=== PATIENT | male | born 1970 | race Caucasian/White ===

== ENCOUNTER 2017-05-13 15:05 | Emergency (ER) | payer OTHER ==
--- NOTE | 2017-05-13 16:36 | RAD REPORT ---
EXAM DESCRIPTION: RAD - Ankle Left 3 View - 05/13/2017 4:28 pm CLINICAL HISTORY: Trauma, left ankle and foot pain. COMPARISON: None. FINDINGS: Left ankle and left foot, multiple projections. Moderate soft tissue swelling is seen about the ankle. Two screws are present in the calcaneus with l arge calcaneal spurs seen. A screw is also present spanning the first tarsal-metatarsal joint. There is no evidence of hardware complication. Arthritic changes are present in the foot and ankle without an acute fracture seen.
--- NOTE | 2017-05-13 18:16 | ER ---
Nurse's Notes [facility] Name: Jim Hays Age: 46 yrs Sex: Male : 1970 Arrival Date: 05/13/2017 Time: 15:08 Bed 11 Private MD: Diagnosis: Sprain of unspecified ligament of left ankle Presentation: 05/13 15:46 Presenting complaint: Patient states: i was mowing my lawn today, around 10 and my L hj foot got into a hole, and now my L ankle and foot hurts;. Transition of care: patient was not received from another setting of care. Onset of symptoms was May 13, 2017. Care prior to arrival: None. 15:46 Method Of Arrival: Ambulatory hj 15:46 Acuity: IVON 4 hj Triage Assessment: 15:48 General: Appears in no apparent distress. uncomfortable, Behavior is calm, cooperative, hj appropriate for age. Pain: Complains of pain in left foot and left lateral ankle. Musculoskeletal: Reports. 15:49 Injury Description: Bruise. hj Historical: - Allergies: 15:48 NKA; hj - Home Meds: 15:48 folic acid 1 mg Oral tab 1 tab once daily [Active]; glipizide 10 mg Oral tab 1 tab 2 hj times per day [Active]; hydroxyzine HCl 25 mg Oral tab 1 tab 3 times per day [Active]; ibuprofen 800 mg Oral tab 1 tab 3 times per day [Active]; lisinopril 20 mg Oral tab 1 tab once daily [Active]; metformin 500 mg Oral tr24 1 tab twice a day [Active]; multivitamin Oral cap daily [Active]; - PMHx: 15:48 Alcoholism; Diabetes - NIDDM; Hypertension; hj - PSHx: 15:48 lap band; heart monitor; hj - Immunization history:: Adult Immunizations up to date. - Social history:: Smoking status: Patient/guardian denies using tobacco, Patient/guardian denies using alcohol. - Family history:: not pertinent. - Hospitalizations: : No recent hospitalization is reported. Screenin:28 Abuse screen: Denies threats or abuse. Denies injuries from another. Nutritional hj screening: No deficits noted. Tuberculosis screening: No symptoms or risk factors identified. Fall Risk Fall in past 12 months (25 points). Assessment: 18:00 General: Appears in no apparent distress. Behavior is calm, cooperative. Pain: iw Complains of pain in left foot. Neuro: Level of Consciousness is awake, alert, obeys commands. Respiratory: Respiratory effort is even, unlabored, Respiratory pattern is regular. 18:49 Reassessment: Patient appears in no apparent distress at this time. Patient and/or iw family updated on plan of care and expected duration. Pain level reassessed. Patient is alert, oriented x 3, equal unlabored respirations, skin warm/dry/pink. Vital Signs: 15:49 BP 126 / 72; Pulse 89; Resp 18; Temp 97.9(O); Pulse Ox 96% on R/A; Weight 147.42 kg; hj Height 6 ft. 1 in. (185.42 cm); Pain 6/10; 15:49 Body Mass Index 42.88 (147.42 kg, 185.42 cm) ED Course: 15:08 Patient arrived in ED. rg4 15:47 Triage completed. 15:49 Arm band placed on left wrist. 15:49 Patient has correct armband on for positive identification. Bed in low position. Call light in reach. Side rails up X 1. 16:16 X-ray completed. Portable x-ray completed in exam room. Patient tolerated procedure ml well. 17:33 Kinsey Butler RN is Primary Nurse. iw 17:37 [facility] kav 17:37 Jesus Washington MD is Attending Physician. kav 18:15 Martinez Suarez MD is Referral Physician. kav 19:15 No provider procedures requiring assistance completed. Patient did not have IV access iw during this emergency room visit. Administered Medications: 18:28 Drug: Calcium 10 mg-325 mg 1 tabs Route: PO; iw 18:28 Drug: Ibuprofen 800 mg Route: PO; iw Outcome: 18:16 Discharge ordered by MD. kav 19:15 Discharged to home via wheelchair. iw 19:15 Condition: good 19:15 Discharge instructions given to patient, Instructed on discharge instructions, follow up and referral plans. medication usage, Demonstrated understanding of instructions, follow-up care, medications, Prescriptions given X 2. 19:17 Patient left the ED. iw Signatures: Frances Encarnacion FNP MANAGER MACHINEKinsey Ridley RN RN Deborah Kinney Henry, RN RN Frida Shepard rg4 Corrections: (The following items were deleted from the chart) 15:51 15:49 Pulse 89bpm; Resp 18bpm; Pulse Ox 96% RA; Temp 97.9F Oral; 147.42 kg; Height 6 hj ft. 1 in.; BMI: 42.8; Pain 6/10; hj
--- NOTE | 2017-05-13 18:17 | EDPHYS ---
Physician Documentation [facility] Name: Jim Hays Age: 46 yrs Sex: Male : 1970 Arrival Date: 05/13/2017 Time: 15:08 Bed 11 Private MD: ED Physician Jesus Washington HPI: 05/13 17:52 This 46 yrs old Male presents to ER via Ambulatory with complaints of Foot kav Injury. 17:53 The patient presents with an injury, pain, swelling. The complaints affect the anterior kav aspect of left ankle. Context: The problem was sustained at home, resulted from a mis-step, stepped in hole in lawn and twisted left ankle. Onset: The symptoms/episode began/occurred this morning. Modifying factors: The symptoms are alleviated by nothing. the symptoms are aggravated by movement, weight bearing. Associated signs and symptoms: Pertinent positives:. 18:09 Treatment prior to arrival includes: no previous treatment. Severity of symptoms: At [facility] their worst the symptoms were moderate, just prior to arrival. pmhx: left ankle surgery January 2015. Historical: - Allergies: 15:48 NKA; hj - Home Meds: 15:48 folic acid 1 mg Oral tab 1 tab once daily [Active]; glipizide 10 mg Oral tab 1 tab 2 hj times per day [Active]; hydroxyzine HCl 25 mg Oral tab 1 tab 3 times per day [Active]; ibuprofen 800 mg Oral tab 1 tab 3 times per day [Active]; lisinopril 20 mg Oral tab 1 tab once daily [Active]; metformin 500 mg Oral tr24 1 tab twice a day [Active]; multivitamin Oral cap daily [Active]; - PMHx: 15:48 Alcoholism; Diabetes - NIDDM; Hypertension; hj - PSHx: 15:48 lap band; heart monitor; hj - Immunization history:: Adult Immunizations up to date. - Social history:: Smoking status: Patient/guardian denies using tobacco, Patient/guardian denies using alcohol. - Family history:: not pertinent. - Hospitalizations: : No recent hospitalization is reported. ROS: 18:12 Constitutional: Negative for fever, chills, and weight loss, Eyes: Negative for injury, kav pain, redness, and discharge, ENT: Negative for injury, pain, and discharge, Neck: Negative for injury, pain, and swelling, Cardiovascular: Negative for chest pain, palpitations, and edema, Respiratory: Negative for shortness of breath, cough, wheezing, and pleuritic chest pain, Abdomen/GI: Negative for abdominal pain, nausea, vomiting, diarrhea, and constipation, Back: Negative for injury and pain, : Negative for injury, bleeding, discharge, and swelling, Skin: Negative for injury, rash, and discoloration, Neuro: Negative for headache, weakness, numbness, tingling, and seizure, Psych: Negative for depression, anxiety, suicide ideation, homicidal ideation, and hallucinations, Allergy/Immunology: Negative for hives, rash, and allergies, Endocrine: Negative for neck swelling, polydipsia, polyuria, polyphagia, and marked weight changes, Hematologic/Lymphatic: Negative for swollen nodes, abnormal bleeding, and unusual bruising. 18:12 MS/extremity: Positive for pain, swelling, tenderness. Exam: 18:12 Constitutional: This is a well developed, well nourished patient who is awake, alert, kav and in no acute distress. Head/Face: Normocephalic, atraumatic. Eyes: Pupils equal round and reactive to light, extra-ocular motions intact. Lids and lashes normal. Conjunctiva and sclera are non-icteric and not injected. Cornea within normal limits. Periorbital areas with no swelling, redness, or edema. ENT: Nares patent. No nasal discharge, no septal abnormalities noted. Tympanic membranes are normal and external auditory canals are clear. Oropharynx with no redness, swelling, or masses, exudates, or evidence of obstruction, uvula midline. Mucous membranes moist. Neck: Trachea midline, no thyromegaly or masses palpated, and no cervical lymphadenopathy. Supple, full range of motion without nuchal rigidity, or vertebral point tenderness. No Meningismus. Chest/axilla: Normal chest wall appearance and motion. Nontender with no deformity. No lesions are appreciated. Cardiovascular: Regular rate and rhythm with a normal S1 and S2. No gallops, murmurs, or rubs. Normal PMI, no JVD. No pulse deficits. Respiratory: Lungs have equal breath sounds bilaterally, clear to auscultation and percussion. No rales, rhonchi or wheezes noted. No increased work of breathing, no retractions or nasal flaring. Abdomen/GI: Soft, non-tender, with normal bowel sounds. No distension or tympany. No guarding or rebound. No evidence of tenderness throughout. Back: No spinal tenderness. No costovertebral tenderness. Full range of motion. Skin: Warm, dry with normal turgor. Normal color with no rashes, no lesions, and no evidence of cellulitis. Neuro: Awake and alert, GCS 15, oriented to person, place, time, and situation. Cranial nerves II-XII grossly intact. Motor strength 5/5 in all extremities. Sensory grossly intact. Cerebellar exam normal. Normal gait. Psych: Awake, alert, with orientation to person, place and time. Behavior, mood, and affect are within normal limits. 18:12 Musculoskeletal/extremity: Extremities: noted in the anterior aspect of left ankle: decreased ROM, pain, swelling, ROM: limited active range of motion, Circulation is intact in all extremities. Pulses: noted to be 2+ in the , Sensation intact. Joints: the left ankle displays limited range of motion, painful range of motion, swelling, tenderness, Weight bearing: can bear weight with assistance only, uses crutch, Tendon exam: specific tendon testing normal through active and passive range of motion Vital Signs: 15:49 BP 126 / 72; Pulse 89; Resp 18; Temp 97.9(O); Pulse Ox 96% on R/A; Weight 147.42 kg; hj Height 6 ft. 1 in. (185.42 cm); Pain 6/10; 15:49 Body Mass Index 42.88 (147.42 kg, 185.42 cm) MDM: 17:37 Patient medically screened. [facility] 18:12 Data reviewed: vital signs, nurses notes, radiologic studies. [facility] 05/13 15:51 Order name: XRAY Ankle LEFT 3 view 05/13 15:51 Order name: Foot Left 3 View XRAY 05/13 16:37 Order name: RAD; Complete Time: 17:52 EDOK 05/13 17:53 Interpretation: No acute disease. [facility] 05/13 18:05 Order name: Mike wrap-joint; Complete Time: 18:28 ka 05/13 18:05 Order name: Ice pack; Complete Time: 18:28 kav Administered Medications: 18:28 Drug: Rexford 10 mg-325 mg 1 tabs Route: PO; iw 18:28 Drug: Ibuprofen 800 mg Route: PO; iw Disposition: 05/14 14:53 Co-signature as Attending Physician, Jesus Washington MD I agree with the assessment and lizzette plan of care. Disposition: 05/13/17 18:16 Discharged to Home. Impression: Sprain of unspecified ligament of left ankle. - Condition is Stable. - Prescriptions for Ibuprofen 800 mg Oral Tablet - take 1 tablet by ORAL route every 8 hours As needed take with food; 30 tablet. Tramadol 50 mg Oral Tablet - take 1 tablet by ORAL route every 8 hours as needed; 20 tablet. - Medication Reconciliation Form, Thank You Letter, Antibiotic Education, Prescription Opioid Use, Work release form form. - Follow up: Martinez Suarez MD; When: 1 week; Reason: Recheck today's complaints, Continuance of care, Re-evaluation by your physician. - Problem is new. - Symptoms have improved. Signatures: Dispatcher [employer] EDJesus Farah MD MD cha Vern, Katherine, NAPHTHALENE OPERATOR NAPHTHALENE OPERATOR Kinsey Tan RN RN iw Joaquin, Henry, RN RN Corrections: (The following items were deleted from the chart) 05/13 18:28 18:05 Crutches ordered. jordy patel
[2017-05-13] MEDS ORDERED: IBUPROFEN 400 MG TAB ONE (18:41)
[2017-05-13] MEDS ORDERED: HYDROCODONE/APAP 10/325 TAB ONE (18:42)
[2017-05-13 19:22] VITALS: BP 126/72; TEMP 97.9; O2SAT 96
== END 2017-05-13 19:17 | disposition home or self-care (01) ==
LOC: ER 15:05
DX: W17.89XA Other fall from one level to another, initial encounter; Y93.01 Activity, walking, marching and hiking; S93.402A Sprain of unspecified ligament of left ankle, initial encounter; Y99.9 Unspecified external cause status; Y92.017 Garden or yard in single-family (private) house as the place of occurrence of the external cause; E11.9 Type 2 diabetes mellitus without complications; I10 Essential (primary) hypertension
CPT/HCPCS: 99283

== ENCOUNTER 2017-07-05 14:33 | Observation (INO) | payer OTHER ==
[2017-07-05] MEDS ORDERED: MORPHINE 4 MG/ML SYR ONE (14:55)
[2017-07-05] MEDS ORDERED: NA CHLORIDE 0.9% 500 ML ONE (14:56)
[2017-07-05 15:15] LABS: Absolute Lymphocytes (CBC) 3.4 K/uL (0.7-4.9); Absolute Monocytes 0.9 K/uL (0.1-1.3); Absolute Neutrophil 6.6 K/uL (1.8-8.0); Basophils % 1.2 % (0-1.3); Eosinophils % 0.2 % (0-4.4); Lymphocytes % 30.7 % (15.3-44.8); MCH 29.8 pg (27.0-35.0); MCV 89.2 fL (80-100); MPV 7.6 fL (7.6-11.3); Monocytes % 8.5 % (3.3-12.3); RBC Red Blood Cell Count 5.27 M/uL (4.33-5.43)
[2017-07-05 15:55] LABS: Bicarbonate 22 mEq/L (21-31); CKMB Creatine Kinase MB 2.6 ng/ml (0.3-4.0); Glucose Level 185 mg/dL (65-120); Potassium 3.6 mEq/L (3.6-5.0); Sodium Level 135 mEq/L (135-145)
[2017-07-05 16:01] LABS: ALT/SGPT 75 IU/L (10-60); AST/SGOT 43 IU/L (10-42); Albumin 4.2 g/dL (3.2-5.5); Alkaline Phosphatase 79 IU/L (42-121); BUN Blood Urea Nitrogen 12 mg/dL (6-20); Bilirubin Direct 0.1 mg/dL (0-0.2); Bilirubin Total 0.6 mg/dL (0.3-1.2); Creatine Phosphokinase 243 IU/L (22-269); Magnesium 1.7 mg/dL (1.8-2.5); Protein, Total 7.9 g/dL (6.0-8.3)
[2017-07-05] MEDS ORDERED: LIDOCAINE VISCOUS 2% SOLN 15 ML UDC ONE (16:03)
[2017-07-05] MEDS ORDERED: MEPERIDINE HCL 25 MG/0.5 ML ONE ×2 (16:03→17:51)
[2017-07-05] MEDS ORDERED: MAGNE/ALUM HYDROXD 30 ML UCUP ONE (16:03)
--- NOTE | 2017-07-05 16:16 | EKG ---
Test Date: 2017-07-05 Test Time: 14:50:43 Cyber Security Engineer: DOUGLAS MEASUREMENT RESULTS: Intervals: Rate: 116 CT: 160 QRSD: 84 QT: 324 QTc: 450 [place]: P: 31 CT: 160 QRS: 6 T: 11 INTERPRETIVE STATEMENTS: Sinus tachycardia Cannot rule out Inferior infarct, age undetermined Abnormal ECG Compared to ECG 01/02/2017 20:23:03 Myocardial infarct finding now present Electronically Signed On 07-05-17 16:15:48 CDT by Logan Taylor
[2017-07-05 17:27] LABS: Barbiturates NEGATIVE; Benzodiazepines NEGATIVE; Cocaine NEGATIVE; METHAMPHETAM NEGATIVE; Opiates POSITIVE; Phencyclidine NEGATIVE; THC Cannibis NEGATIVE
--- NOTE | 2017-07-05 18:25 | RAD REPORT ---
EXAM DESCRIPTION: RAD - Chest Single View - 07/05/2017 3:37 pm CLINICAL HISTORY: Shortness of breath COMPARISON: December 2016 TECHNIQUE: AP portable chest image was obtained 1533 hours . FINDINGS: Lungs are clear. Heart and vasculature are normal. No measurable pleural effusion and no p neumothorax. No gross bony abnormality seen. No acute aortic findings. Loop recorder overlies the lef t side of the chest. IMPRESSION: No acute cardiopulmonary process. No significant change from comparison.
--- NOTE | 2017-07-05 18:33 | RAD REPORT ---
EXAM DESCRIPTION: CT - Angio Aorta For Dissection - 07/05/2017 6:24 pm CLINICAL HISTORY: Chest pain, shortness of breath COMPARISON: Chest films same date TECHNIQUE: Dynamically enhanced 3 mm thick images of the chest, abdomen, and upper pelvis were obtai carol[place] during administration of approximately 150mL Isovue 370 IV contrast. Sagittal and coronal reconst ruction images were generated and reviewed. Exam utilizes a protocol to evaluate entire course of the aorta. All CT scans are performed using dose optimization technique as appropriate and may include automated exposure control or mA/KV adjustment according to patient size. FINDINGS: Aorta is normal in diameter with no dissection or other acute aortic findings. Reconstruct ion images show no significant findings. Minimal atherosclerotic calcifications are present. Pulmonary arteries are clear. The far peripheral branches are limited in assessment. No cardiomegaly, pericardial thickening or pericardial effusion. No mass or infiltrate in the lung parenchyma. No pleural thickening, pleural effusion or pneumothorax . No abnormal mediastinal or hilar mass or lymphadenopathy seen. No chest wall mass or abnormal axillar y lymphadenopathy. Celiac, SMA and renal arteries show no suspicious findings. Liver shows a pronounced fatty infiltrati on pattern with no focal liver lesions. Liver and spleen are normal in size. No pancreatic or peripan creatic abnormality. Gallbladder and biliary tree are within normal limits. Gallstones can be occult on CT imaging. Lap band is in place. No acute GI process identified. The appendix is normal. No mass or abnormal lymphadenopathy. No free air, free fluid or inflammatory stranding. No urinary bladder a bnormality. Fat filled right inguinal hernia present. IMPRESSION: No aneurysm, dissection or acute aortic finding. No acute CT chest finding seen. Diffuse fatty infiltration of the liver with no acute liver finding. No active process identified bel ow the diaphragm.
[2017-07-05] MEDS ORDERED: LORazepam 2 MG/ML VIAL ONE (18:47)
--- NOTE | 2017-07-05 18:50 | ER ---
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 Pain does not radiate. Transition of care: patient was not received from another setting of care. Onset of symptoms was July 05, 2017. Care prior to arrival: None. 14:37 Method Of Arrival: Ambulatory hb 14:37 Acuity: IVON 2 hb 14:40 Initial Sepsis Screen: Does the patient meet any 2 criteria? RR > 20 per min. HR > 90 sv bpm. Yes Does the patient have a suspected source of infection? No. Patient's initial sepsis screen is negative. Historical: - Allergies: 20:03 No Known Allergies; mg2 - Home Meds: 15:22 folic acid 1 mg Oral tab 1 tab once daily [Active]; glipizide 10 mg Oral tab 1 tab 2 sv times per day [Active]; hydroxyzine HCl 25 mg Oral tab 1 tab 3 times per day [Active]; ibuprofen 800 mg Oral tab 1 tab 3 times per day [Active]; lisinopril 20 mg Oral tab 1 tab once daily [Active]; metformin 500 mg Oral tr24 1 tab twice a day [Active]; multivitamin Oral cap daily [Active]; - PMHx: 15:22 Alcoholism; Diabetes - NIDDM; Hypertension; sv - PSHx: 15:22 lap band; sv - Immunization history:: Adult Immunizations up to date. - Family history:: not pertinent. - Social history:: Smoking status: Patient uses tobacco products, smokes one pack cigarettes per day. Patient uses alcohol, weekly. patient/guardian reports chronic longstanding heavy alcohol consumption. - Hospitalizations: : No recent hospitalization is reported. Screenin:50 Abuse screen: Denies threats or abuse. Denies injuries from another. Nutritional sv screening: No deficits noted. Tuberculosis screening: No symptoms or risk factors identified. Fall Risk None identified. Assessment: 14:50 General: Appears distressed, uncomfortable, obese, well developed, Behavior is sv cooperative, anxious. Pain: Complains of pain in chest Pain does not radiate. Pain currently is 10 out of 10 on a pain scale. Quality of pain is described as sharp, stabbing, Pain began suddenly, 1 hour ago. Is continuous, Noted to be crying, grimacing, moaning. Neuro: Level of Consciousness is awake, alert, obeys commands, Oriented to person, place, time, situation, Moves all extremities. Full function Gait is steady. Cardiovascular: Reports shortness of breath, Patient's skin is warm and dry. Pulses are 3+ in right radial artery and left radial artery Rhythm is sinus tachycardia. Respiratory: Respiratory effort is even, labored, Respiratory pattern is symmetrical, tachypnea. GI: Abdomen is obese. Derm: Skin is clammy, Skin is red, Skin temperature is warm. Musculoskeletal: No signs and/or symptoms reported regarding the musculoskeletal system. 15:55 Reassessment: pt c/o increase CP, described as pressure midsternal, nonradiating, a sg 10/10, pt placed back on NC 02, 02 100 percent, HR 110, BP 155/96, notifed, awaiting new orders at this time. 16:06 Reassessment: No changes from previously documented assessment. Patient and/or family sv updated on plan of care and expected duration. Pain level reassessed. Patient is alert, oriented x 3, equal unlabored respirations, skin warm/dry/pink. c/o chest pain that has not subsided. Informed Dr Oleary, medication ordered. 17:50 Reassessment: No changes from previously documented assessment. Patient and/or family sv updated on plan of care and expected duration. Pain level reassessed. Patient is alert, oriented x 3, equal unlabored respirations, skin warm/dry/pink. c/o chest pain that has not subsided. Informed Dr Oleary, medication ordered. Pt had taken off his oxygen, pt placed back on oxygen at 2L per NC. 18:00 Reassessment: Patient and/or family updated on plan of care and expected duration. Pain sv level reassessed. Patient is alert, oriented x 3, equal unlabored respirations, skin warm/dry/pink. c/o chest pain that has not subsided as stated by the pt. Informed Dr Oleary, medication order received. 19:28 Reassessment: Patient appears in no apparent distress at this time. Patient and/or mg2 family updated on plan of care and expected duration. Pain level reassessed. Patient is alert, oriented x 3, equal unlabored respirations, skin warm/dry/pink. received from morning shift. patient sitting comfortably on bed. Vital Signs: 14:38 BP 174 / 100; Pulse 120; Resp 22; Temp 97.9; Pulse Ox 97% on R/A; Pain 10/10; hb 15:23 BP 155 / 96; Pulse 110 MON; Resp 16; Pulse Ox 96% on 2 lpm NC; sv 16:00 BP 151 / 99; Pulse 118 MON; Resp 32; Pulse Ox 98% on 2 lpm NC; sv 17:00 BP 165 / 93; Pulse 112 MON; Resp 19; Pulse Ox 97% on 2 lpm NC; sv 17:59 BP 137 / 75; Pulse 117; Resp 21; Pulse Ox 98% on 2 lpm NC; sv 19:29 BP 166 / 78; Pulse 110; Resp 20; Pulse Ox 98% on 2 lpm NC; mg2 15:23 Sinus Rhythm sv 16:00 Sinus tachycardia sv 17:00 Sinus tachycardia sv 17:59 Sinus tachycardia sv ED Course: 14:34 Patient arrived in ED. al2 14:38 Triage completed. hb 14:39 Arm band placed on right wrist. hb 14:41 Pavan Oleary MD is Attending Physician. rn 14:45 Sarah Castanon, MICHELE is Primary Nurse. sv 14:49 Inserted saline lock: 18 gauge in right antecubital area, using aseptic technique. hb Blood collected. 14:50 Patient has correct armband on for positive identification. Placed in gown. Bed in low sv position. Call light in reach. Adult w/ patient. bus monitor on. Pulse ox on. NIBP on. Door closed. Head of bed elevated. 15:23 Oxygen administration via nasal cannula \T\ 2L/min Response to oxygen therapy: symptoms sv remain unchanged. 15:33 X-ray completed. Portable x-ray completed in exam room. Patient tolerated procedure bb2 well. 15:34 XRAY Chest (1 view) In Process Unspecified. EDMS 17:59 EKG done, by planetarium technician. reviewed by Pavan Oleary MD Repeat EKG. at1 18:24 CT Aorta for Dissection In Process Unspecified. EDMS 18:49 Michael Dozier MD is Hospitalizing Provider. rn 18:52 IV is patent, is intact. sv 19:43 Primary Nurse role handed off by Sarah Castanon RN sv 20:01 Reynold Tsai, MICHELE is Primary Nurse. mg2 20:26 No provider procedures requiring assistance completed. Patient admitted, IV remains in mg2 place. intact. Administered Medications: 15:00 Drug: NS 0.9% 500 ml Route: IV; Rate: bolus; Site: right antecubital; sv 15:30 Follow up: Response: No adverse reaction; IV Status: Completed infusion; IV Intake: sv 500ml 15:00 Drug: morphine 4 mg Route: IVP; Site: right antecubital; sv 15:15 Follow up: Response: No adverse reaction sv 16:08 Drug: GI Cocktail without - (Maalox Suspension 30 ml, Lidocaine Liquid 2 % 15 sv ml) Route: PO; 17:04 Follow up: Response: No adverse reaction sv 16:08 Drug: Demerol 25 mg Route: IVP; Site: right antecubital; sv 17:04 Follow up: Response: No adverse reaction sv 17:55 Drug: Demerol 25 mg Route: IVP; Site: right antecubital; aa5 18:15 Follow up: Response: No adverse reaction; No change in condition sv 18:52 Drug: Ativan 1 mg Route: IVP; Site: right antecubital; sv 19:00 Follow up: Response: No adverse reaction sv 18:56 Drug: Aspirin Chewable Tablet 324 mg Route: PO; sv 19:00 Follow up: Response: No adverse reaction sv Intake: 15:30 IV: 500ml; Total: 500ml. sv Outcome: 18:49 Decision to Hospitalize by Provider. rn 20:25 Admitted to Tele accompanied by tech, via wheelchair, room 415, with oxygen, with mg2 chart, Report called to edwin 20:25 Condition: stable 20:25 Instructed on the need for admit. 20:38 Patient left the ED. 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 hb 14:39 14:37 Acuity: IVON 3 hb hb 17:56 07:55 Demerol 25 mg IVP in right antecubital aa5 aa5 18:09 17:59 Pulse 117bpm; Resp 21bpm; Pulse Ox 98% 2 lpm Nasal Cannula; sv sv 19:28 16:09 Reassessment: No changes from previously documented assessment. Patient and/or sv family updated on plan of care and expected duration. Pain level reassessed. Patient is alert, oriented x 3, equal unlabored respirations, skin warm/dry/pink. sv 19:28 17:50 Reassessment: No changes from previously documented assessment. Patient and/or sv family updated on plan of care and expected duration. Pain level reassessed. Patient is alert, oriented x 3, equal unlabored respirations, skin warm/dry/pink. c/o chest pain that has not subsided. Informed Dr Oleary, medication ordered. sv 20:03 15:22 Allergies: NKA; sv mg2
--- NOTE | 2017-07-05 18:50 | EDPHYS ---
Physician Documentation [facility] Name: Jim Hays Age: 46 yrs Sex: Male : 1970 Arrival Date: 07/05/2017 Time: 14:34 Bed 7 Private MD: ED Physician Pavan Oleary HPI: 07/05 15:31 This 46 yrs old Male presents to ER via Ambulatory with complaints of Chest rn Pain, Breathing Difficulty. 15:31 The patient or guardian reports chest pain that is located primarily in the substernal rn area. Onset: just prior to arrival. The pain does not radiate. The chest pain is described as a heaviness, a pressure. Severity of pain: At its worst the pain was moderate in the emergency department the pain is unchanged. The patient has experienced similar episodes in the past. Reports eating lunch, sudden onset of chest pain, substernal, non-radiating, + mild sob, hx of ETOh and drug related chest pain, reports drank heavily last night and some today, denies drug use. . Historical: - Allergies: 20:03 No Known Allergies; mg2 - Home Meds: 15:22 folic acid 1 mg Oral tab 1 tab once daily [Active]; glipizide 10 mg Oral tab 1 tab 2 sv times per day [Active]; hydroxyzine HCl 25 mg Oral tab 1 tab 3 times per day [Active]; ibuprofen 800 mg Oral tab 1 tab 3 times per day [Active]; lisinopril 20 mg Oral tab 1 tab once daily [Active]; metformin 500 mg Oral tr24 1 tab twice a day [Active]; multivitamin Oral cap daily [Active]; - PMHx: 15:22 Alcoholism; Diabetes - NIDDM; Hypertension; sv - PSHx: 15:22 lap band; sv - Immunization history:: Adult Immunizations up to date. - Family history:: not pertinent. - Social history:: Smoking status: Patient uses tobacco products, smokes one pack cigarettes per day. Patient uses alcohol, weekly. patient/guardian reports chronic longstanding heavy alcohol consumption. - Hospitalizations: : No recent hospitalization is reported. ROS: 15:31 Constitutional: Negative for fever, chills, and weight loss, Eyes: Negative for injury, rn pain, redness, and discharge, Neck: Negative for injury, pain, and swelling, Cardiovascular: Negative for edema Respiratory: Negative for wheezing Abdomen/GI: Negative for abdominal pain, nausea, vomiting, diarrhea, and constipation, Back: Negative for injury and pain, MS/Extremity: Negative for injury and deformity, Skin: Negative for injury, rash, and discoloration, Neuro: Negative for headache, weakness, numbness, tingling, and seizure. Exam: 15:31 Constitutional: Overweight male, appears anxious Head/Face: Normocephalic, rn atraumatic. Eyes: Pupils equal round and reactive to light, extra-ocular motions intact. Lids and lashes normal. Conjunctiva and sclera are non-icteric and not injected. Cornea within normal limits. Periorbital areas with no swelling, redness, or edema. ENT: dry MM Neck: Trachea midline, no thyromegaly or masses palpated, and no cervical lymphadenopathy. Supple, full range of motion without nuchal rigidity, or vertebral point tenderness. No Meningismus. Cardiovascular: tachycardic, regular, no murmur Respiratory: Lungs have equal breath sounds bilaterally, clear to auscultation and percussion. No rales, rhonchi or wheezes noted. No increased work of breathing, no retractions or nasal flaring. Abdomen/GI: Soft, non-tender, with normal bowel sounds. No distension or tympany. No guarding or rebound. No evidence of tenderness throughout. MS/ Extremity: Pulses equal, no cyanosis. Neurovascular intact. Full, normal range of motion. Equal circumference. Neuro: Awake and alert, GCS 15, oriented to person, place, time, and situation. Cranial nerves II-XII grossly intact. Motor strength 5/5 in all extremities. Sensory grossly intact. Vital Signs: 14:38 BP 174 / 100; Pulse 120; Resp 22; Temp 97.9; Pulse Ox 97% on R/A; Pain 10/10; hb 15:23 BP 155 / 96; Pulse 110 MON; Resp 16; Pulse Ox 96% on 2 lpm NC; sv 16:00 BP 151 / 99; Pulse 118 MON; Resp 32; Pulse Ox 98% on 2 lpm NC; sv 17:00 BP 165 / 93; Pulse 112 MON; Resp 19; Pulse Ox 97% on 2 lpm NC; sv 17:59 BP 137 / 75; Pulse 117; Resp 21; Pulse Ox 98% on 2 lpm NC; sv 19:29 BP 166 / 78; Pulse 110; Resp 20; Pulse Ox 98% on 2 lpm NC; mg2 15:23 Sinus Rhythm sv 16:00 Sinus tachycardia sv 17:00 Sinus tachycardia sv 17:59 Sinus tachycardia sv MDM: 14:41 Patient medically screened. rn 18:46 Differential diagnosis: acute myocardial infarction, acute pericarditis, anxiety, rn coronary artery disease chest wall pain, costochondritis, gastritis, pericarditis, pleurisy, pneumonia, pneumothorax, pulmonary embolus, thoracic aortic disection. The patient was given aspirin in the Emergency Department. Data reviewed: vital signs, nurses notes, lab test result(s), EKG, radiologic studies, CT scan, plain films, and as a result, I will admit patient. Counseling: I had a detailed discussion with the patient and/or guardian regarding: the historical points, exam findings, and any diagnostic results supporting the discharge/admit diagnosis, lab results, radiology results, the need for further work-up and treatment in the hospital. Admission orders: after a detailed discussion of the patient's condition and case, the admit orders are written by me. ED course: Pt with unclear etiology of chest pain, trop neg, no ischemia on ECG, ct aorta neg, still having pain despite pain medication, GI cocktail. Pt reports feeling like "is going to ".. 07/05 14:47 Order name: Basic Metabolic Panel; Complete Time: 16:47 07/05 14:47 Order name: BNP; Complete Time: 16:47 07/05 14:47 Order name: CBC with Diff; Complete Time: 16:47 07/05 14:47 Order name: Ckmb; Complete Time: 16:47 07/05 14:47 Order name: CPK; Complete Time: 16:47 07/05 14:47 Order name: LFT's; Complete Time: 16:47 07/05 14:47 Order name: Magnesium; Complete Time: 16:47 07/05 14:47 Order name: Troponin (emerg Dept Use Only); Complete Time: 16:47 07/05 14:47 Order name: XRAY Chest (1 view); Complete Time: 18:37 07/05 14:47 Order name: Urine Drug Screen; Complete Time: 18:37 07/05 16:48 Order name: CT Aorta for Dissection; Complete Time: 18:37 rn 07/05 18:50 Order name: Urine Dipstick--Ancillary (enter results); Complete Time: 19:40 bd 07/05 14:47 Order name: Urine Dipstick-Ancillary (obtain specimen); Complete Time: 17:05 rn 07/05 14:47 Order name: EKG; Complete Time: 14:47 rn 07/05 14:47 Order name: Cardiac monitoring; Complete Time: 15:46 rn 07/05 14:47 Order name: EKG - Nurse/Tech; Complete Time: 15:46 rn 07/05 14:47 Order name: IV Saline Lock; Complete Time: 15:46 rn 07/05 14:47 Order name: Labs collected and sent; Complete Time: 15:46 rn 07/05 14:47 Order name: O2 Per Protocol; Complete Time: 15:46 rn 07/05 14:47 Order name: O2 Sat Monitoring; Complete Time: 15:46 rn Administered Medications: 15:00 Drug: NS 0.9% 500 ml Route: IV; Rate: bolus; Site: right antecubital; sv 15:30 Follow up: Response: No adverse reaction; IV Status: Completed infusion; IV Intake: sv 500ml 15:00 Drug: morphine 4 mg Route: IVP; Site: right antecubital; sv 15:15 Follow up: Response: No adverse reaction sv 16:08 Drug: GI Cocktail without - (Maalox Suspension 30 ml, Lidocaine Liquid 2 % 15 sv ml) Route: PO; 17:04 Follow up: Response: No adverse reaction sv 16:08 Drug: Demerol 25 mg Route: IVP; Site: right antecubital; sv 17:04 Follow up: Response: No adverse reaction sv 17:55 Drug: Demerol 25 mg Route: IVP; Site: right antecubital; aa5 18:15 Follow up: Response: No adverse reaction; No change in condition sv 18:52 Drug: Ativan 1 mg Route: IVP; Site: right antecubital; sv 19:00 Follow up: Response: No adverse reaction sv 18:56 Drug: Aspirin Chewable Tablet 324 mg Route: PO; sv 19:00 Follow up: Response: No adverse reaction sv Disposition: 07/05/17 18:49 Hospitalization ordered by Michael Dozier for Observation. Preliminary diagnosis is Chest pain, unspecified. - Bed requested for Telemetry/MedSurg (observation). - Status is Observation. mg2 - Condition is Stable. - Problem is new. - Symptoms have improved. UTI on Admission? No Signatures: Dispatcher [employer] EDSarah Olsen, RN RN sv Taty Jimenez, RN RN mw Pavan Oleary MD MD rn Calderon, Audri, RN RN aa5 Reynold Tsai, RN RN mg2 Corrections: (The following items were deleted from the chart) 15:38 15:31 Constitutional: Negative for fever, chills, and weight loss, Eyes: Negative for rn injury, pain, redness, and discharge, Neck: Negative for injury, pain, and swelling, Cardiovascular: Negative for edema Respiratory: Negative for wheezing Abdomen/GI: Negative for abdominal pain, nausea, vomiting, diarrhea, and constipation, Back: Negative for injury and pain, MS/Extremity: Negative for injury and deformity, Skin: Negative for injury, rash, and discoloration, Neuro: Negative for headache, weakness, numbness, tingling, and seizure, rn 15:39 15:31 Constitutional: This is a well developed, well nourished patient who is awake, rn alert, and in no acute distress. rn 19:29 18:49 Hospitalization Ordered by Michael Dozier MD for Observation. Preliminary mw diagnosis is Chest pain, unspecified. Bed requested for Telemetry/MedSurg (observation). Status is Observation. Condition is Stable. Problem is new. Symptoms have improved. UTI on Admission? No. rn 20:03 15:22 Allergies: NKA; sv mg2 20:38 19:29 07/05/2017 18:49 Hospitalization Ordered by Michael Dozier MD for Observation. mg2 Preliminary diagnosis is Chest pain, unspecified. Bed requested for Telemetry/MedSurg (observation). Status is Observation. Condition is Stable. Problem is new. Symptoms have improved. UTI on Admission? No. mw
[2017-07-05] MEDS ORDERED: ASPIRIN 81 MG CHEWABLE TABLET ONE (18:54)
[2017-07-05 18:58] LABS: Urine Blood NEGATIVE (NEG); Urine Glucose TRACE (NEG); Urine Protein 2+ (NEG); Urine Specific Gravity >1.030 (1.005-1.030); Urine pH 5.5 (5.0-7.0)
--- NOTE | 2017-07-05 20:15 | P.HP ---
Certification for Inpatient Patient admitted to: Observation With expected LOS: <2 Midnights Practitioner: I am a practitioner with admitting privileges, knowledge of patient current condition, hospital course, and medical plan of care. Services: Services provided to patient in accordance with Admission requirements found in Title 42 Section 412.3 of the Code of Federal Regulations Patient History Date of Service: 07/05/17 Reason for admission: chest pain History of Present Illness: Mr Hays is a 46 years old male with history of morbid obesity, HTN, DM II, who came to ED complaining of chest pain. The pain started at noon, sudden while he was having lunch. It was located on substernal area, no radiated, 10/ 10 of intensity, described as pressure like, associated with SOB. He denied nausea or vomiting, diaphoresis, but he states that got hot in his face while the pain. He also noticed his heart was racing. He said that last time drink alcohol was yesterday, but his breath smell alcohol. Trop I negative, EKG sinus tachycardia, cannot rule out Inferior infarct, age undetermined. CT dissection negative for PE or dissection. Allergies No Known Todd Allergy (Uncoded 07/26/16 18:27) Unknown No Known Allergies Allergy (Uncoded 01/02/17 21:35) Unknown antihistamines Adverse Reaction (Uncoded 03/21/13 22:45) palpatations decongestants Adverse Reaction (Uncoded 03/21/13 22:45) palpatations Home Medications: Aspirin Chewable [Aspirin Chewable*] 81 mg PO DAILY 03/21/13 Carisoprodol [Soma*] 350 mg PO TIDP PRN 03/21/13 Diazepam [Valium*] 5 mg PO QIDP PRN 03/21/13 Glipizide [Glucotrol*] 10 mg PO BIDWM 03/21/13 Lisinopril [Prinivil*] 10 mg PO DAILY 03/21/13 - Past Medical/Surgical History Diabetic: Yes -: htn -: obese -: lap band - Family History Family History: Reviewed- Non-Contributory - Social History Alcohol use: Yes CD- Drugs: No Caffeine use: Yes Place of Residence: Home Review of Systems 10-point ROS is otherwise unremarkable Physical Examination - Physical Exam General: Alert, In no apparent distress HEENT: Atraumatic, PERRLA, Mucous membr. moist/pink, EOMI, Sclerae nonicteric Neck: Supple, 2+ carotid pulse no bruit, No LAD, Without JVD or thyroid abnormality Respiratory: Clear to auscultation bilaterally, Normal air movement Cardiovascular: Regular rate/rhythm, Normal S1 S2, Other (tachycardic) Gastrointestinal: Normal bowel sounds, No tenderness Musculoskeletal: No tenderness Integumentary: No rashes Neurological: Normal speech, Normal strength at 5/5 x4 extr, Normal tone, Normal affect Lymphatics: No axilla or inguinal lymphadenopathy - Studies Laboratory Data (last 24 hrs) 07/05/17 15:00: WBC 11.1 H, Hgb 15.7, Hct 47.0, Plt Count 278 07/05/17 15:00: B-Natriuretic Peptide < 10 07/05/17 15:00: Sodium 135, Potassium 3.6, BUN 12, Creatinine 0.86, Glucose 185 H, Magnesium 1.7 L, Total Bilirubin 0.6, AST 43 H, ALT 75 H, Alkaline Phosphatase 79 Assessment and Plan - Problems (Diagnosis) (1) Chest pain Current Visit: Yes Status: Acute Qualifiers: Chest pain type: precordial pain Qualified Code(s): R07.2 - Precordial pain (2) Obesity Current Visit: Yes Status: Acute Qualifiers: Obesity type: due to excess calories Obesity classification: unspecified obesity classification Serious obesity comorbidity presence: unspecified whether serious comorbidity present Qualified Code(s): E66.09 - Other obesity due to excess calories (3) Diabetes mellitus Current Visit: Yes Status: Acute Qualifiers: Diabetes mellitus type: type 2 Diabetes mellitus care home insulin use: without ocean transportation intermediary use Diabetes mellitus complication status: with unspecified complications Qualified Code(s): E11.8 - Type 2 diabetes mellitus with unspecified complications (4) HTN (hypertension) Current Visit: Yes Status: Acute Qualifiers: Hypertension type: essential hypertension Qualified Code(s): I10 - Essential (primary) hypertension - Plan The patient will be admitted to the hospital under observation due to chest pain. So far initial trop I is negative, EKG shows Inferior infarct, age undetermined, CT dissection negative as well. Will repeat serial trop I, EKG, order an ECHO, consult Air Technician. Toxicology screen positive only for opiates , which is not part of his home medications. Will order beta blockers, ASA, check lipid panel in am. - Advance Directives Does patient have a Living Will: No Does patient have a Durable POA for Healthcare: No - Code Status/Comfort Care Code Status Assessed: Yes Code Status: Full Code
[2017-07-05] MEDS ORDERED: ONDANSETRON 4 MG/2 ML VIAL IV PRN (20:41)
[2017-07-05] MEDS ORDERED: ACETAMINOPHEN 500 MG TAB PO PRN (20:41)
[2017-07-05] MEDS: INSULIN -REGULAR HUMAN 50 UNIT/0.5 ML ML SQ SCH (21:00)
[2017-07-05 22:05] VITALS: BMI 43.0
[2017-07-05] MEDS: TRAMADOL HCL 50 MG TAB PO PRN (22:06)
[2017-07-05] MEDS ORDERED: LORAZEPAM 1 MG TABLET PO ONE (23:51)
[2017-07-06 04:46] LABS: Absolute Lymphocytes (CBC) 2.1 K/uL (0.7-4.9); Absolute Monocytes 0.7 K/uL (0.1-1.3); Absolute Neutrophil 3.8 K/uL (1.8-8.0); Basophils % 0.7 % (0-1.3); Eosinophils % 0.2 % (0-4.4); Hematocrit 40.7 % (39.6-49.0); Lymphocytes % 31.9 % (15.3-44.8); MCH 30.7 pg (27.0-35.0); MCV 88.5 fL (80-100); MPV 7.5 fL (7.6-11.3); Monocytes % 10.3 % (3.3-12.3)
[2017-07-06 04:55] LABS: BUN Blood Urea Nitrogen 14 mg/dL (6-20); Bicarbonate 25 mEq/L (21-31); Glucose Level 148 mg/dL (65-120); HDL Cholesterol 63 mg/dL (27-67); LDL Cholesterol, Calculated 144 (<130); Potassium 3.8 mEq/L (3.6-5.0); Sodium Level 134 mEq/L (135-145)
[2017-07-06] MEDS ORDERED: METOPROLOL TAR 25 MG TAB PO SCH (06:00)
[2017-07-06] MEDS ORDERED: POTASSIUM 25 MEQ EFFERV TAB PO ONE (06:38)
--- NOTE | 2017-07-06 07:11 | RAD REPORT ---
EXAM DESCRIPTION: RAD - Chest Pa And Lat (2 Views) - 07/06/2017 6:39 am CLINICAL HISTORY: Chest pain COMPARISON: July 05 TECHNIQUE: PA and lateral views of the chest were obtained. FINDINGS: The lungs are clear. No new or progressive lung parenchymal or cardiomediastinal process. Heart size is normal and central vasculature is within normal limits. No pleural effusion or pneumo thorax seen. No acute bony finding noted. No aortic abnormality. IMPRESSION: No acute cardiopulmonary process. No new or progressive finding.
[2017-07-06] MEDS: INSULIN -REGULAR HUMAN 50 UNIT/0.5 ML ML SQ SCH ×3 (07:30→16:30)
[2017-07-06] MEDS ORDERED: REGADENOSON 0.4 MG/5 ML SYR IV ONE (07:34)
[2017-07-06] MEDS ORDERED: ENOXAPARIN 40 MG/0.4 ML SQ SCH (09:00)
[2017-07-06] MEDS ORDERED: ASPIRIN EC 81 MG TAB PO SCH (09:00)
[2017-07-06 09:05] LABS: A1c Component 0.99 mg/dL; Hemoglobin A1c 8.4 % (4-6.0)
[2017-07-06] MEDS: TRAMADOL HCL 50 MG TAB PO PRN (13:06)
--- NOTE | 2017-07-06 14:07 | RAD REPORT ---
EXAM DESCRIPTION: NM - Rest Stress Cardiac Imaging - 07/06/2017 1:54 pm CLINICAL HISTORY: Chest pain. COMPARISON: None. TECHNIQUE: The patient was administered approximately 10mCi of Tc 99m Sestamibi prior to resting SPE CT imaging of the heart. The patient was then administered approximately 30 mCi of Tc 99m Sestamibi f ollowing exercise or pharmacologic stress. Multiplanar SPECT images were reviewed. FINDINGS: No stress induced ischemic defect is seen to suggest stress induced ischemia. No fixed def ect is seen to suggest hibernating myocardium or scarred myocardium. The end diastolic volume is 128 ml, the end systolic volume is 54 ml, and the ejection fraction is 58 %. IMPRESSION: No stress induced ischemia.
[2017-07-06] MEDS ORDERED: GLUCAGON 1 MG/VIAL IM PRN (14:48)
[2017-07-06] MEDS ORDERED: D50W 25 GM/50 ML SYRINGE IV PRN (14:48)
--- NOTE | 2017-07-06 15:28 | EKG ---
Test Date: 2017-07-05 Test Time: 17:48:28 Kettle Girl: FLOR MEASUREMENT RESULTS: Intervals: Rate: 111 WY: 168 QRSD: 88 QT: 334 QTc: 454 Willow: P: 43 WY: 168 QRS: 3 T: 3 INTERPRETIVE STATEMENTS: Sinus tachycardia Cannot rule out Inferior infarct, age undetermined Abnormal ECG Compared to ECG 07/05/2017 14:50:43 No significant changes Electronically Signed On 07-06-17 15:27:01 CDT by Marc Rodriguez
--- NOTE | 2017-07-06 15:35 | TREADPHA ---
DX: CHEST PAIN Date of Study: 07/06/17 Ht: 6 1 Wt: 325 lb 12.8 oz Consulting Physician: JULY MEDICATIONS: TYLENOL, ASPIRIN, LOVENOX, NOVOLIN R, LOPRESSOR, ZOFRAN. HISTORY: 46 YEAR OLD WITH ATYPICAL CHEST PAIN. PHYSICIAL EXAMINATION: RESTING B.P.: 171/80 RESTING H.R.: 92 RESTING EKG: NORMAL PROTOCOL: LEXISCAN EXERCISE TIME: 3:30 B.P. AT PEAK STRESS: 167/88 IMPRESSION: LEXISCAN STRESS TEST PERFORMED. CARDIOLITE INJECTED PER PROTOCOL. NO VENTRICULAR TACHYCARDIA OR SUPRA VENTRICULAR TACHYCARDIA NOTED. SEE NUCLEAR MEDICINE REPORT.
--- NOTE | 2017-07-06 15:46 | ECHO ---
HEIGHT: 6 ft 1 in WEIGHT: 325 lb 12.8 oz DATE OF STUDY: 07/06/[address]: Michael Martinez MD 2-DIMENSIONAL: YES M.MODE: YES DOPPLER: YES COLOR FLOW: YES TDS: YES PORTABLE: NO DEFINITY: NO BUBBLE STUDY: NO DIAGNOSIS: CHEST PAIN CARDIAC HISTORY: CATHERIZATION: NO SURGERY: NO PROSTHETIC VALVE: NO PACEMAKER: NO MEASUREMENTS (cm) DIASTOLIC (NORMALS) SYSTOLIC (NORMALS) IVSd 1.1 (0.6-1.2) LA Diam 3.8 (1.9-4.0) LVEF 62% LVIDd 4.5 (3.5-5.7) LVIDs 3.0 (2.0-3.5) %FS 33% LVPWd 1.2 (0.6-1.2) Ao Diam 3.4 (2.0-3.7) 2 DIMENSIONAL ASSESSMENT: RIGHT ATRIUM: NORMAL LEFT ATRIUM: NORMAL RIGHT VENTRICLE: NORMAL LEFT VENTRICLE: NORMAL TRICUSPID VALVE: NORMAL MITRAL VALVE: NORMAL PULMONIC VALVE: NORMAL AORTIC VALVE: NORMAL PERICARDIAL EFFUSION: NONE AORTIC ROOT: NORMAL LEFT VENTRICULAR WALL MOTION: NORMAL. DOPPLER/COLOR FLOW: NORMAL. COMMENTS: NORMAL 2D ECHO. TECHNICALLY DIFFICULT STUDY. NO WALL MOTION ABNORMALITY. NO EFFUSION. TECHNOLOGIST: MISHA JOHNSON
[2017-07-06 16:53] VITALS: BP 155/75; TEMP 97.3
[2017-07-06 17:26] VITALS: O2SAT 95
--- NOTE | 2017-07-06 23:43 | CON ---
Date of Consultation: 07/06/2017 I saw the patient on 07/06/2017. Reason For Consultation: Chest pain and shortness of breath. History Of Present Illness: Mr. Hays is a 46-year-old male, has a history of obesity, is status po st lap band surgery, hypertension, alcoholism, and diabetes. He came in with shortness of breath, ch est pain, mostly palpitations, sharp chest pain, lasted about 4 hours. Some nausea, but no vomiting or diaphoresis. He denied PND, orthopnea, or pedal edema. Denied syncope. His workup by the time I saw him was unremarkable. He had an EKG, showed some sinus tachycardia with PACs. Chest x-ray was negative. CT of the abdomen showed fatty liver. CT angiogram was negative. He had elevated liver f unction tests mildly; AST 43, ALT 75. Glucose was 185. His white count was 11,000. Past Medical History: As stated above. Allergies: NONE. Review of Systems: Negative. Social History: Positive for alcohol. Medications: Include aspirin, metformin, Soma, Valium, Glucotrol, and Prinivil. Physical Examination: Vital Signs: His heart rate was 117. HEENT: Negative. Neck: Supple, with no bruit. Chest: Clear. Cardiac: Revealed a regular rhythm and rate. No murmurs, gallops, or rubs. Abdomen: Benign. Extremities: Revealed no clubbing, cyanosis, or edema. Diagnostic Data: As stated earlier. Impression And Plan: 1.Atypical chest pain, mostly pleuritic. 2.Possible anxiety and palpitation, secondary to premature atrial contractions. 3.Diabetes. 4.Hypertension. 5.Alcohol abuse with elevated liver function tests and fatty liver. 6.Obesity, status post laparoscopic band. Mr. Hays has been requesting that we give him some antidepressants when he goes home. I recommende d an echocardiogram and Lexiscan before we make any final decision. He may be a good candidate for b eta-blockers in addition to the Prinivil for blood pressure control and heart rate control and premat ure atrial contractions. NB/MODL Voice ID: [id number] Report ID: [id number]
== END 2017-07-06 16:45 | disposition left against medical advice (07) ==
LOC: ER 14:33 → ERHOLD 18:50 → 4TH 19:43
PROVIDERS: ADMIT Family Medicine; ATTEND Internal Medicine
DX: R07.9 Chest pain, unspecified (principal); E66.9 Obesity, unspecified; Z68.41 Body mass index [BMI] 40.0-44.9, adult; Z98.84 Bariatric surgery status; I10 Essential (primary) hypertension; E11.9 Type 2 diabetes mellitus without complications; F10.10 Alcohol abuse, uncomplicated
CPT/HCPCS: 36415; 71045; 71046; 71275; 74175; 78452; 80048; 80061; 80076; 80307; 80320; 81003; 82550; 82553; 82962; 83036; 83735; 83880; 84484; 85025; 93005; 93017; 93306; 96374; 96375; 99285; A9500; G0378; J1650; J2175; J2785; Q9967

== ENCOUNTER 2017-07-08 13:30 | Emergency (ER) | payer OTHER ==
--- NOTE | 2017-07-08 16:19 | EKG ---
Test Date: 2017-07-08 Test Time: 16:16:00 Field Hauler: FLOR MEASUREMENT RESULTS: Intervals: Rate: 77 MS: 158 QRSD: 84 QT: 374 QTc: 423 Heber: P: 37 MS: 158 QRS: 20 T: 21 INTERPRETIVE STATEMENTS: Normal sinus rhythm Normal ECG Compared to ECG 07/05/2017 17:48:28 Sinus tachycardia no longer present Myocardial infarct finding no longer present Electronically Signed On 07-08-17 16:18:55 CDT by Marc Rodriguez
[2017-07-08] MEDS ORDERED: ALPRAZOLAM 0.25 MG TABLET ONE (16:21)
[2017-07-08 16:34] LABS: Absolute Lymphocytes (CBC) 2.6 K/uL (0.7-4.9); Absolute Monocytes 0.5 K/uL (0.1-1.3); Absolute Neutrophil 4.8 K/uL (1.8-8.0); Eosinophils % 2.7 % (0-4.4); Hematocrit 45.5 % (39.6-49.0); Lymphocytes % 31.2 % (15.3-44.8); MCH 29.5 pg (27.0-35.0); MCV 89.7 fL (80-100); MPV 8.1 fL (7.6-11.3); Monocytes % 6.3 % (3.3-12.3); RBC Red Blood Cell Count 5.08 M/uL (4.33-5.43)
[2017-07-08 16:38] LABS: Protime INR 0.87
--- NOTE | 2017-07-08 16:43 | RAD REPORT ---
EXAM DESCRIPTION: Gomez Single View07/08/2017 4:31 pm CLINICAL HISTORY: cough COMPARISON: July 05 FINDINGS: The lungs appear clear of acute infiltrate. The heart is normal size. A battery pack overlies the left chest IMPRESSION: No acute abnormalities displayed
[2017-07-08 16:53] LABS: ALT/SGPT 97 IU/L (10-60); AST/SGOT 74 IU/L (10-42); Albumin 3.9 g/dL (3.2-5.5); Alkaline Phosphatase 72 IU/L (42-121); BUN Blood Urea Nitrogen 11 mg/dL (6-20); Bicarbonate 25 mEq/L (21-31); Bilirubin Direct 0.1 mg/dL (0-0.2); Bilirubin Total 0.5 mg/dL (0.3-1.2); Glucose Level 157 mg/dL (65-120); Potassium 3.8 mEq/L (3.6-5.0); Protein, Total 7.3 g/dL (6.0-8.3); Salicylates Level < 4.0 mg/dl (<30); Sodium Level 133 mEq/L (135-145)
[2017-07-08 16:54] LABS: Alcohol Serum/Plasma < 10 mg/dl
[2017-07-08 16:59] LABS: Barbiturates NEGATIVE; Benzodiazepines NEGATIVE; Cocaine NEGATIVE; METHAMPHETAM NEGATIVE; Opiates NEGATIVE; Phencyclidine NEGATIVE; THC Cannibis NEGATIVE
--- NOTE | 2017-07-08 18:01 | EDPHYS ---
Physician Documentation [facility] Name: Jim Hays Age: 46 yrs Sex: Male : 1970 Arrival Date: 07/08/2017 Time: 13:32 Bed 15 Private MD: ED Physician Pavan Oleary HPI: 07/08 14:58 This 46 yrs old Male presents to ER via Ambulatory with complaints of kav Allergic Reaction. 17:14 The patient presents with redness of skin, cough. Onset: The symptoms/episode kav began/occurred acutely, 2 day(s) ago. Associated signs and symptoms: The patient has no apparent associated signs or symptoms. Pertinent positives: Pertinent negatives: abdominal pain, Altered mental status chest pain, dysphagia, fever, headache, hives, Light headed nausea, rash, shortness of breath, swelling, Syncope vomiting. Possible causes: patient reports that he "...received contrast dye when he was admitted to the hospital on 07/04/17 and is now developing reddened skin and a cough related to the dye"; no new medications in past two weeks. At home the patient or guardian has treated the symptoms with nothing. Severity of symptoms: At their worst the symptoms were very mild. The patient has not experienced similar symptoms in the past. The patient has been recently been admitted at [facility], was discharged earlier this week. pt presents with c/o of an allergic reaction to "...contrast dye during his recent hospitalization on 07/04/17 and is c/o of reddened skin and a productive intermittent cough with green-colored phlegm". pt reports leaving the hospital AMA on 07/05/17. He reports then being seen at the [facility] on 07/06/17 for similar symptoms and was "...told to go to the ER, however, he did not report to the ER at that time". c/o anxiety. Historical: - Allergies: 13:55 No Known Allergies; aj - Home Meds: 13:55 folic acid 1 mg Oral tab 1 tab once daily [Active]; glipizide 10 mg Oral tab 2 tabs 2 aj times per day [Active]; hydroxyzine HCl 25 mg Oral tab 1 tab 3 times per day [Active]; lisinopril 20 mg Oral tab 1 tab once daily [Active]; metformin 500 mg Oral tr24 1 tab twice a day [Active]; multivitamin Oral cap daily [Active]; ibuprofen 800 mg Oral tab 1 tab 3 times per day [Active]; - PMHx: 13:55 Alcoholism; Diabetes - NIDDM; Hypertension; aj - PSHx: 13:55 lap band; aj - Immunization history:: Adult Immunizations up to date. - Social history:: Smoking status: Patient/guardian denies using tobacco. - Family history:: not pertinent. - Hospitalizations: : The patient was recently seen at [facility], and discharged 2 day(s) ago. ROS: 17:19 Constitutional: Negative for fever, chills, and weight loss, Eyes: Negative for injury, kav pain, redness, and discharge, ENT: Negative for injury, pain, and discharge, Neck: Negative for injury, pain, and swelling, Cardiovascular: Negative for chest pain, palpitations, and edema, Abdomen/GI: Negative for abdominal pain, nausea, vomiting, diarrhea, and constipation, Back: Negative for injury and pain, : Negative for injury, bleeding, discharge, and swelling, MS/Extremity: Negative for injury and deformity, Neuro: Negative for headache, weakness, numbness, tingling, and seizure, Allergy/Immunology: Negative for hives, rash, and allergies, Endocrine: Negative for neck swelling, polydipsia, polyuria, polyphagia, and marked weight changes, Hematologic/Lymphatic: Negative for swollen nodes, abnormal bleeding, and unusual bruising. 17:19 Respiratory: Positive for cough, with green sputum, Negative for dyspnea on exertion, hemoptysis, orthopnea, pleurisy, shortness of breath, wheezing. 17:19 Skin: Positive for erythema, "...reddened skin on left upper extremity", Negative for abrasions, abscesses, avulsion, burn, cellulitis, diaphoresis, discoloration, ecchymosis, hematoma, jaundice, laceration(s), lesions, pallor, puncture, rash, swelling, ulceration, acute changes. 17:19 Psych: Positive for anxiety, depression, alcohol dependence, patient reports that he is "...a heavy drinker and is an alcoholic". He reports "...drinking a lot of whiskey 1 days ago", Negative for Exam: 17:19 Constitutional: This is a well developed, well nourished patient who is awake, alert, kav and in no acute distress. Head/Face: Normocephalic, atraumatic. Eyes: Pupils equal round and reactive to light, extra-ocular motions intact. Lids and lashes normal. Conjunctiva and sclera are non-icteric and not injected. Cornea within normal limits. Periorbital areas with no swelling, redness, or edema. ENT: Nares patent. No nasal discharge, no septal abnormalities noted. Tympanic membranes are normal and external auditory canals are clear. Oropharynx with no redness, swelling, or masses, exudates, or evidence of obstruction, uvula midline. Mucous membranes moist. Neck: Trachea midline, no thyromegaly or masses palpated, and no cervical lymphadenopathy. Supple, full range of motion without nuchal rigidity, or vertebral point tenderness. No Meningismus. Chest/axilla: Normal chest wall appearance and motion. Nontender with no deformity. No lesions are appreciated. Cardiovascular: Regular rate and rhythm with a normal S1 and S2. No gallops, murmurs, or rubs. Normal PMI, no JVD. No pulse deficits. Respiratory: Lungs have equal breath sounds bilaterally, clear to auscultation and percussion. No rales, rhonchi or wheezes noted. No increased work of breathing, no retractions or nasal flaring. Abdomen/GI: Soft, non-tender, with normal bowel sounds. No distension or tympany. No guarding or rebound. No evidence of tenderness throughout. Back: No spinal tenderness. No costovertebral tenderness. Full range of motion. Skin: Warm, dry with normal turgor. Normal color with no rashes, no lesions, and no evidence of cellulitis. MS/ Extremity: Pulses equal, no cyanosis. Neurovascular intact. Full, normal range of motion. Neuro: Awake and alert, GCS 15, oriented to person, place, time, and situation. Cranial nerves II-XII grossly intact. Motor strength 5/5 in all extremities. Sensory grossly intact. Cerebellar exam normal. Normal gait. 17:19 ECG was reviewed by the Attending Physician. NSR \\T\\ 77 bpm 17:19 Psych: Exam negative for Behavior/mood is anxious, Patient has no thoughts/intents to harm self or others. Delusions/hallucinations are not present. Vital Signs: 13:55 BP 161 / 86; Pulse 88; Resp 17; Temp 98.6; Pulse Ox 97% on R/A; Weight 146.51 kg; aj Height 6 ft. 1 in. (185.42 cm); 17:29 BP 150 / 84; Pulse 89; Resp 18; Pulse Ox 100% on R/A; hj 13:55 Body Mass Index 42.61 (146.51 kg, 185.42 cm) aj MDM: 17:19 Data reviewed: vital signs, nurses notes, EKG, radiologic studies, plain films. kav 18:00 Medical screening is not applicable. 07/08 16:07 Order name: Acetaminophen; Complete Time: 17:25 07/08 17:25 Interpretation: Within normal limits. 07/08 16:07 Order name: Basic Metabolic Panel; Complete Time: 17:26 07/08 17:26 Interpretation: Normal except: NA 133; GLUC 157. 07/08 16:07 Order name: CBC with Diff; Complete Time: 17:26 07/08 17:26 Interpretation: Normal except: WBC 8.2. 07/08 16:07 Order name: ETOH Level; Complete Time: 17:26 07/08 17:26 Interpretation: Within normal limits. 07/08 16:07 Order name: Hepatic Function; Complete Time: 17:26 07/08 17:26 Interpretation: Normal except: SGOT 74; SGPT 97. 07/08 16:07 Order name: PT-INR; Complete Time: 17:26 07/08 17:26 Interpretation: Within normal limits. 07/08 16:07 Order name: Ptt, Activated; Complete Time: 17:26 07/08 17:26 Interpretation: Within normal limits. 07/08 16:07 Order name: Salicylate; Complete Time: 17:26 07/08 17:26 Interpretation: Within normal limits. 07/08 16:07 Order name: Urine Drug Screen; Complete Time: 17:24 07/08 17:25 Interpretation: Within normal limits. 07/08 16:07 Order name: EKG; Complete Time: 16:07 07/08 16:07 Order name: EKG - Nurse/Tech; Complete Time: 16:19 07/08 16:08 Order name: CXR XRAY; Complete Time: 17:25 [facility] 07/08 17:25 Interpretation: No acute disease. [facility] 07/08 16:49 Order name: Urine Dipstick--Ancillary (enter results) bd 07/08 17:24 Interpretation: Within normal limits. [facility] 07/08 16:07 Order name: IV Saline Lock; Complete Time: 16:19 [facility] 07/08 16:07 Order name: Labs collected and sent; Complete Time: 16:19 [facility] 07/08 16:07 Order name: Urine Dipstick-Ancillary (obtain specimen); Complete Time: 17:33 07/08 16:07 Order name: Telemetry; Complete Time: 16:42 [facility] 07/08 17:27 Order name: VS Recheck: document recheck vital signs; Complete Time: 17:28 kav EC:19 Rate is 77 beats/min. Rhythm is regular. QRS [place] is Normal. NV interval is normal. QRS kav interval is normal. QT interval is normal. No Q waves. T waves are Normal. No ST changes noted. Clinical impression: Normal ECG. Administered Medications: 16:39 Drug: Ativan 0.5 mg Route: PO; 17:33 Follow up: Response: No adverse reaction mariana Disposition: 18:39 Co-signature as Attending Physician, Pavan Oleary MD. rn Disposition: 07/08/17 18:00 Discharged to Home. Impression: Other adverse food reactions, not elsewhere classified, Anxiety disorder, unspecified. - Condition is Stable. - Discharge Instructions: Panic Attacks, [id number], Generalized Anxiety Disorder. - Prescriptions for Ativan 1 mg Oral Tablet - take 1 tablet by ORAL route every 8 hours As needed; 10 tablet. - Medication Reconciliation Form, Thank You Letter, Antibiotic Education, Prescription Opioid Use form. - Follow up: Private Physician; When: 1 - 2 days; Reason: Recheck today's complaints, Continuance of care, Re-evaluation by your physician. - Problem is new. - Symptoms have improved. Signatures: Dispatcher [employer] Margo Schaeffer RN RN aj Vern, Katherine, PORTFOLIO CONSULTANT PORTFOLIO CONSULTANT Kinsey Tan RN RN iw Nieto, Roman, MD MD rn Joaquin, Henry, RN RN hj Corrections: (The following items were deleted from the chart) 18:18 18:00 07/08/2017 18:00 Discharged to Home. Impression: Other adverse food reactions, hj not elsewhere classified; Anxiety disorder, unspecified. Condition is Stable. Forms are Medication Reconciliation Form, Thank You Letter, Antibiotic Education, Prescription Opioid Use. Follow up: Private Physician; When: 1 - 2 days; Reason: Recheck today's complaints, Continuance of care, Re-evaluation by your physician. Problem is new. Symptoms have improved. kav
--- NOTE | 2017-07-08 18:01 | ER ---
Nurse's Notes [facility] Name: Jim Hays Age: 46 yrs Sex: Male : 1970 Arrival Date: 07/08/2017 Time: 13:32 Bed 15 Private MD: Diagnosis: Other adverse food reactions, not elsewhere classified;Anxiety disorder, unspecified Presentation: 07/08 13:52 Presenting complaint: Patient states: Reports "not feeling right" since discharge from this hospital 2 days ago after being admitted for chest pain. All tests negative. Patient reports feeling flushed and anxious with tingling in lips and face. Transition of care: patient was not received from another setting of care. Onset: The symptoms/episode began/occurred gradually. Anaphylaxis evaluation, no signs or symptoms of anaphylaxis were noted. Onset of symptoms was July 06, 2017. Care prior to arrival: None. 13:52 Method Of Arrival: Ambulatory aj 13:52 Acuity: IVON 4 aj 16:48 Initial Sepsis Screen: Does the patient meet any 2 criteria? No. Patient's initial hj sepsis screen is negative. Does the patient have a suspected source of infection? No. Patient's initial sepsis screen is negative. Triage Assessment: 13:55 General: Appears in no apparent distress. comfortable, Behavior is calm, cooperative, aj appropriate for age. Pain: Denies pain. Neuro: Level of Consciousness is awake, alert, obeys commands, Oriented to person, place, time, situation, Appropriate for age. Respiratory: Airway is patent Respiratory effort is even, unlabored, Respiratory pattern is regular, symmetrical. Derm: Skin is intact, is healthy with good turgor, Skin is flushed. 13:56 Respiratory: Reports shortness of breath at rest. aj Historical: - Allergies: 13:55 No Known Allergies; aj - Home Meds: 13:55 folic acid 1 mg Oral tab 1 tab once daily [Active]; glipizide 10 mg Oral tab 2 tabs 2 aj times per day [Active]; hydroxyzine HCl 25 mg Oral tab 1 tab 3 times per day [Active]; lisinopril 20 mg Oral tab 1 tab once daily [Active]; metformin 500 mg Oral tr24 1 tab twice a day [Active]; multivitamin Oral cap daily [Active]; ibuprofen 800 mg Oral tab 1 tab 3 times per day [Active]; - PMHx: 13:55 Alcoholism; Diabetes - NIDDM; Hypertension; aj - PSHx: 13:55 lap band; aj - Immunization history:: Adult Immunizations up to date. - Social history:: Smoking status: Patient/guardian denies using tobacco. - Family history:: not pertinent. - Hospitalizations: : The patient was recently seen at [facility], and discharged 2 day(s) ago. Screenin:43 Abuse screen: Denies threats or abuse. Denies injuries from another. Nutritional iw screening: No deficits noted. Tuberculosis screening: No symptoms or risk factors identified. 16:48 Fall Risk None identified. hj Assessment: 15:42 General: Appears in no apparent distress. comfortable, Behavior is calm, cooperative. iw Neuro: Level of Consciousness is awake, alert, obeys commands. Respiratory: Airway is patent Respiratory effort is even, unlabored, Breath sounds are clear bilaterally. 16:25 General: Appears. Neuro: Reports tingling in his lips and hands. Cardiovascular: Heart iw tones S1 S2 present Patient's skin is warm and dry. GI: Abdomen is non-distended, obese. Derm: Skin is pink, warm \\T\\ dry. normal. Musculoskeletal: Range of motion: intact in all extremities. Vital Signs: 13:55 BP 161 / 86; Pulse 88; Resp 17; Temp 98.6; Pulse Ox 97% on R/A; Weight 146.51 kg; aj Height 6 ft. 1 in. (185.42 cm); 17:29 BP 150 / 84; Pulse 89; Resp 18; Pulse Ox 100% on R/A; hj 13:55 Body Mass Index 42.61 (146.51 kg, 185.42 cm) aj ED Course: 13:32 Patient arrived in ED. mr 13:39 Patient's name was called from ER lobby. No response. iw 13:54 Triage completed. aj 13:55 Arm band placed on right wrist. Patient placed in waiting room. aj 14:58 [facility]. kav 14:58 Pavan Oleary MD is Attending Physician. kav 15:21 Kinsey Butler, RN is Primary Nurse. iw 16:26 Initial lab(s) drawn, by me, sent to lab. Inserted saline lock: 20 gauge in right iw antecubital area, using aseptic technique. Blood collected. 16:31 CXR XRAY In Process Unspecified. EDMS 16:49 Patient has correct armband on for positive identification. Bed in low position. Call hj light in reach. Side rails up X 1. Adult w/ patient. 18:17 No provider procedures requiring assistance completed. IV discontinued, intact, hj bleeding controlled, No redness/swelling at site. Pressure dressing applied. Administered Medications: 16:39 Drug: Ativan 0.5 mg Route: PO; 17:33 Follow up: Response: No adverse reaction Outcome: 18:00 Discharge ordered by . jordy 18:17 Discharged to home ambulatory. hj 18:17 Condition: stable 18:17 Discharge instructions given to patient, family, Instructed on discharge instructions, follow up and referral plans. medication usage, Demonstrated understanding of instructions, follow-up care, medications, Prescriptions given X 1. 18:18 Patient left the ED. Signatures: Dispatcher [employer] EDMS Margo Ellis, Frances Urbano RN, Ada Olson mr Kinsey Butler, Jesus Beasley RN, RN RN hj
[2017-07-08 18:11] LABS: Urine Blood NEGATIVE (NEG); Urine Glucose 3+ (NEG); Urine Protein NEGATIVE (NEG); Urine Specific Gravity 1.025 (1.005-1.030)
[2017-07-08 18:25] VITALS: TEMP 98.6
[2017-07-08 18:26] VITALS: BP 150/84; O2SAT 100
== END 2017-07-08 18:18 | disposition home or self-care (01) ==
LOC: ER 13:30
DX: T78.1XXA Other adverse food reactions, not elsewhere classified, initial encounter (principal); R05 Cough; I10 Essential (primary) hypertension; E11.9 Type 2 diabetes mellitus without complications; F10.20 Alcohol dependence, uncomplicated
CPT/HCPCS: 36415; 71045; 80048; 80076; 80307; 80320; 80329; 81003; 85025; 85610; 85730; 93005; 99284

== ENCOUNTER 2017-09-13 09:42 | Inpatient (IN) | payer OTHER ==
[2017-09-13] MEDS ORDERED: LORazepam 2 MG/ML VIAL ONE (11:17)
[2017-09-13] MEDS ORDERED: THIAMINE 200 MG/2 ML INJ ONE (11:17)
[2017-09-13] MEDS ORDERED: FAMOTIDINE 20 MG/2 ML VIAL IV ONE (11:17)
[2017-09-13] MEDS ORDERED: NA CHLORIDE 0.9% 1,000 ML ONE (11:18)
[2017-09-13 11:24] LABS: Absolute Lymphocytes (CBC) 1.8 K/uL (0.7-4.9); Absolute Monocytes 0.5 K/uL (0.1-1.3); Absolute Neutrophil 5.9 K/uL (1.8-8.0); Basophils % 0.7 % (0-1.3); Eosinophils % 0.1 % (0-4.4); Hematocrit 46.8 % (39.6-49.0); Lymphocytes % 21.9 % (15.3-44.8); MCH 31.6 pg (27.0-35.0); MCV 90.7 fL (80-100); MPV 7.4 fL (7.6-11.3); Monocytes % 6.5 % (3.3-12.3); RBC Red Blood Cell Count 5.17 M/uL (4.33-5.43)
[2017-09-13] MEDS ORDERED: Magnesium Sulfate 1gm IVPB 2 GM/100 ML BAG IV ONE (11:42)
--- NOTE | 2017-09-13 11:42 | RAD REPORT ---
EXAM DESCRIPTION: RAD - Chest Single View - 09/13/2017 11:33 am CLINICAL HISTORY: CHEST PAIN Chest pain. COMPARISON: Chest Single View dated 07/08/2017; Chest Pa And Lat (2 Views) dated 07/06/2017; Chest Sin gle View dated 07/05/2017; Chest Single View dated 01/02/2017 FINDINGS: Portable technique limits examination quality. The lungs are grossly clear. The heart is normal in size. No displaced fractures. IMPRESSION: No acute intrathoracic process suspected.
[2017-09-13 11:51] LABS: Barbiturates NEGATIVE (NEGATIVE); Benzodiazepines NEGATIVE (NEGATIVE); Cocaine NEGATIVE (NEGATIVE); METHAMPHETAM NEGATIVE (NEGATIVE); Methadone NEGATIVE (NEGATIVE); Opiates NEGATIVE (NEGATIVE); Phencyclidine NEGATIVE (NEGATIVE); THC Cannibis NEGATIVE (NEGATIVE)
--- NOTE | 2017-09-13 11:55 | ER ---
Nurse's Notes [facility] Name: Jim Hays Age: 47 yrs Sex: Male : 1970 Arrival Date: 09/13/2017 Time: 09:44 Bed 8 Private MD: David Butler Diagnosis: Weakness;Alcohol abuse;Type 2 diabetes mellitus;Hypomagnesemia Presentation: 09/13 09:55 Presenting complaint: Patient states: "i have been drinking a lot, 2 \\T\\1/2 gal of tw2 Mark past 2 days, when I try to come down off the alcohol I get heart palpitations, i have been drinking for years, but really bad these past 2 weeks". Transition of care: patient was not received from another setting of care. Onset of symptoms was September 13, 2017. Risk Assessment: Do you want to hurt yourself or someone else? Patient reports no desire to harm self or others. Initial Sepsis Screen: Does the patient meet any 2 criteria? No. Patient's initial sepsis screen is negative. Does the patient have a suspected source of infection? No. Patient's initial sepsis screen is negative. Care prior to arrival: None. 09:55 Method Of Arrival: Ambulatory tw2 09:55 Acuity: IVON 3 tw2 Triage Assessment: 09:55 General: Appears obese, Behavior is anxious. tw2 Historical: - Allergies: 10:00 No Known Allergies; tw2 - Home Meds: 10:00 multivitamin Oral cap daily [Active]; metformin 500 mg Oral tr24 1 tab twice a day tw2 [Active]; lisinopril 20 mg Oral tab 1 tab once daily [Active]; hydroxyzine HCl 25 mg Oral tab 1 tab 3 times per day [Active]; folic acid 1 mg Oral tab 1 tab once daily [Active]; glipizide 10 mg Oral tab 2 tabs 2 times per day [Active]; ibuprofen 800 mg Oral tab 1 tab 3 times per day [Active]; - PMHx: 10:00 Alcoholism; Diabetes - NIDDM; Hypertension; tw2 - PSHx: 10:00 lap band; tw2 - Immunization history:: Adult Immunizations up to date. - Social history:: Smoking status: Patient/guardian denies using tobacco, Patient uses alcohol, on a daily basis. patient/guardian reports chronic longstanding heavy alcohol consumption. patient/guardian reports recent binge of alcohol consumption. - Ebola Screening: : Patient denies travel to an Ebola-affected area in the 21 days before illness onset. - Family history:: not pertinent. Screenin:04 Abuse screen: Denies threats or abuse. Nutritional screening: No deficits noted. tw2 Tuberculosis screening: No symptoms or risk factors identified. Fall Risk None identified. Assessment: 09:55 General: Appears in no apparent distress. obese, unkempt, Behavior is anxious. Pain: tw2 Denies pain. Neuro: Level of Consciousness is awake, alert, obeys commands, Oriented to person, place, time, situation. Cardiovascular: Denies chest pain, shortness of breath, Heart tones S1 S2 Patient's skin is warm and dry. Respiratory: Airway is patent Respiratory effort is even, unlabored, labored, Respiratory pattern is regular, symmetrical, Breath sounds are clear bilaterally. GI: Abdomen is round non-distended, obese, Bowel sounds present X 4 quads. : No signs and/or symptoms were reported regarding the genitourinary system. EENT: No signs and/or symptoms were reported regarding the EENT system. Derm: Skin is intact, is healthy with good turgor, Skin is moist. Musculoskeletal: Range of motion: intact in all extremities. 11:29 Reassessment: Patient appears in no apparent distress at this time. No changes from tw2 previously documented assessment. Patient and/or family updated on plan of care and expected duration. Pain level reassessed. Patient is alert, oriented x 3, equal unlabored respirations, skin warm/dry/pink. 12:30 Reassessment: Patient appears in no apparent distress at this time. No changes from tw2 previously documented assessment. Patient and/or family updated on plan of care and expected duration. Pain level reassessed. Patient is alert, oriented x 3, equal unlabored respirations, skin warm/dry/pink. 13:40 Reassessment: Patient appears in no apparent distress at this time. No changes from tw2 previously documented assessment. Patient and/or family updated on plan of care and expected duration. Pain level reassessed. Patient is alert, oriented x 3, equal unlabored respirations, skin warm/dry/pink. Psych: 10:00 Subjective: Patient's mood is sad. Objective: Patient is cooperative, Speech is normal, tw2 Affect is appropriate. Interventions: pt in room at this time. Suicide Risk Assessment: Sad Person Scale: Sex of patient: Male: Score 1 point. Age of patient: Score 0 point if patient falls outside of specified age parameters. Depression: Score 1 point if signs of depression are present. Previous Attempt: Score 0 point if patient has not previously attempted suicide. Substance Abuse: Score 1 point if patient abuses alcohol or drugs. Rational Thinking: Score 0 point if patient has rational thinking. Social Support: Score 0 if social support is present/available. Organized Plan: Score 0 if patient did not have an organized plan in place. Relationship: Score 1 point if patient is , , , or for a single male Chronic Sickness: Score 1 point if patient has illness, chronic, debilitating, or severe. TOTAL POINTS: If total points are 5-6, proposed clinical action is to strongly consider hospitalization, depending upon confidence in the follow-up arrangement. Implement suicide precautions. 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 Patient uses 2 1/2 gallons of liquor, hourly. Last use was 5 hours ago. Commitment: Patient will be a voluntary commitment. Vital Signs: 09:55 BP 163 / 101; Pulse 112; Resp 28; Temp 98.1(O); Pulse Ox 95% on R/A; tw2 10:11 BP 150 / 84; Pulse 114; Resp 19; Pulse Ox 95% on R/A; tw2 11:29 BP 150 / 80; Pulse 116; Resp 17; Pulse Ox 95% on R/A; tw2 12:30 BP 162 / 87; Pulse 110; Resp 17; Pulse Ox 95% on R/A; tw2 13:38 BP 154 / 72; Pulse 107; Resp 19; Pulse Ox 95% on R/A; tw2 ED Course: 09:44 Patient arrived in ED. sb2 09:44 David Butler MD is Private Physician. sb2 09:51 Bernadine Jin, MICHELE is Primary Nurse. tw2 09:57 Triage completed. tw2 09:58 Arm band placed on. tw2 09:59 Jesus Washington MD is Attending Physician. lizzette 10:00 Bed in low position. Call light in reach. Side rails up X 1. roll forming machine set up operator on. Pulse tw2 ox on. NIBP on. 10:05 EKG done, by senior pharmacy technician. reviewed by Jesus Washington MD. at1 10:29 Inserted saline lock: 20 gauge in right forearm, using aseptic technique. Blood em1 collected. 11:32 X-ray completed. Portable x-ray completed in exam room. Patient tolerated procedure jb2 well. 11:33 XRAY Chest (1 view) In Process Unspecified. EDMS 11:51 Missed attempt(s): 20 gauge in left forearm. Bleeding controlled, band aid applied, tw2 catheter tip intact. Inserted saline lock: 22 gauge in left antecubital area, using aseptic technique. 11:53 David Butler MD is Hospitalizing Provider. lizzette 13:43 No provider procedures requiring assistance completed. Patient admitted, IV remains in tw2 place. Administered Medications: 11:20 Drug: Ativan 2 mg Route: IVP; Site: right forearm; tw2 12:09 Follow up: Response: No adverse reaction sv 11:27 Drug: NS 0.9% 1000 ml Route: IV; Rate: 1 bolus; Site: right forearm; tw2 11:27 Drug: Pepcid 20 mg Route: IVP; Site: right forearm; tw2 12:09 Follow up: Response: No adverse reaction sv 11:28 Drug: Thiamine 100 mg Route: IV; Rate: bolus; Site: right forearm; tw2 11:51 Drug: Magnesium Sulfate 2 grams Route: IVPB; Infused Over: 2 hrs; Site: right forearm; tw2 12:10 Drug: Banana Bag - (NS 0.9% 1000 ml, foLIC Acid 1 mg, Thiamine 100 mg, Multivitamin 1 tw2 amp) Route: IV; Rate: 150 ml/hr; Site: left antecubital; Outcome: 11:55 Decision to Hospitalize by Provider. lizzette 13:40 Admitted to ICU accompanied by nurse, via wheelchair, room 7, Report called to tw2 MICHELE Blanco 13:40 Condition: stable 13:40 Instructed on the need for admit. 14:01 Patient left the ED. Signatures: Dispatcher [employer] EDMS Sarah Castanon, RN Jesus Armstrong MD MD cha Buechter, Jesse jb2 Zaid Senior em1 Alana Ragland RN RN Margo tyson, swedger EKG Tat1 Jin, Bernadine, RN RN tw2 Billeau, Cathy sb2
--- NOTE | 2017-09-13 11:55 | EDPHYS ---
Physician Documentation [facility] Name: Jim Hays Age: 47 yrs Sex: Male : 1970 Arrival Date: 09/13/2017 Time: 09:44 Bed 8 Private MD: David Butler ED Physician Jesus Washington HPI: 09/13 11:04 This 47 yrs old Male presents to ER via Ambulatory with complaints of ETOH lizzetet Abuse. 11:04 alcohol abuse and pain all over. Onset: The symptoms/episode began/occurred 3 day(s) lizzette ago. Severity of symptoms: At their worst the symptoms were moderate in the emergency department the symptoms are unchanged. The patient has experienced similar episodes in the past, multiple times. Historical: - Allergies: 10:00 No Known Allergies; tw2 - Home Meds: 10:00 multivitamin Oral cap daily [Active]; metformin 500 mg Oral tr24 1 tab twice a day tw2 [Active]; lisinopril 20 mg Oral tab 1 tab once daily [Active]; hydroxyzine HCl 25 mg Oral tab 1 tab 3 times per day [Active]; folic acid 1 mg Oral tab 1 tab once daily [Active]; glipizide 10 mg Oral tab 2 tabs 2 times per day [Active]; ibuprofen 800 mg Oral tab 1 tab 3 times per day [Active]; - PMHx: 10:00 Alcoholism; Diabetes - NIDDM; Hypertension; tw2 - PSHx: 10:00 lap band; tw2 - Immunization history:: Adult Immunizations up to date. - Social history:: Smoking status: Patient/guardian denies using tobacco, Patient uses alcohol, on a daily basis. patient/guardian reports chronic longstanding heavy alcohol consumption. patient/guardian reports recent binge of alcohol consumption. - Ebola Screening: : Patient denies travel to an Ebola-affected area in the 21 days before illness onset. - Family history:: not pertinent. ROS: 11:04 Constitutional: Negative for fever, chills, and weight loss, Eyes: Negative for injury, lizzette pain, redness, and discharge, ENT: Negative for injury, pain, and discharge, Neck: Negative for injury, pain, and swelling, Respiratory: Negative for shortness of breath, cough, wheezing, and pleuritic chest pain, Abdomen/GI: Negative for abdominal pain, nausea, vomiting, diarrhea, and constipation, Back: Negative for injury and pain, : Negative for injury, bleeding, discharge, and swelling, MS/Extremity: Negative for injury and deformity, Skin: Negative for injury, rash, and discoloration, Psych: Negative for depression, anxiety, suicide ideation, homicidal ideation, and hallucinations, Allergy/Immunology: Negative for hives, rash, and allergies, Endocrine: Negative for neck swelling, polydipsia, polyuria, polyphagia, and marked weight changes, Hematologic/Lymphatic: Negative for swollen nodes, abnormal bleeding, and unusual bruising. 11:04 Cardiovascular: Positive for palpitations. 11:04 Neuro: Positive for altered mental status, dizziness, near syncope, weakness. Exam: 11:04 Head/Face: Normocephalic, atraumatic. Eyes: Pupils equal round and reactive to light, lizzette extra-ocular motions intact. Lids and lashes normal. Conjunctiva and sclera are non-icteric and not injected. Cornea within normal limits. Periorbital areas with no swelling, redness, or edema. ENT: Nares patent. No nasal discharge, no septal abnormalities noted. Tympanic membranes are normal and external auditory canals are clear. Oropharynx with no redness, swelling, or masses, exudates, or evidence of obstruction, uvula midline. Mucous membranes moist. Neck: Trachea midline, no thyromegaly or masses palpated, and no cervical lymphadenopathy. Supple, full range of motion without nuchal rigidity, or vertebral point tenderness. No Meningismus. Chest/axilla: Normal chest wall appearance and motion. Nontender with no deformity. No lesions are appreciated. Respiratory: Lungs have equal breath sounds bilaterally, clear to auscultation and percussion. No rales, rhonchi or wheezes noted. No increased work of breathing, no retractions or nasal flaring. Abdomen/GI: Soft, non-tender, with normal bowel sounds. No distension or tympany. No guarding or rebound. No evidence of tenderness throughout. Back: No spinal tenderness. No costovertebral tenderness. Full range of motion. Male : Normal genitalia with no discharge or lesions. Skin: Warm, dry with normal turgor. Normal color with no rashes, no lesions, and no evidence of cellulitis. MS/ Extremity: Pulses equal, no cyanosis. Neurovascular intact. Full, normal range of motion. Neuro: Awake and alert, GCS 15, oriented to person, place, time, and situation. Cranial nerves II-XII grossly intact. Motor strength 5/5 in all extremities. Sensory grossly intact. Cerebellar exam normal. Normal gait. 11:04 Constitutional: The patient appears in obvious distress, mildly distressed. 11:04 Cardiovascular: Rate: tachycardic, Rhythm: regular, Pulses: Pulses are 4+ in bilateral radial, brachial, femoral, popliteal, posterior tibial and and dorsalis pedis arteries.. Heart sounds: normal, Edema: is not appreciated, JVD: is not appreciated. Vital Signs: 09:55 BP 163 / 101; Pulse 112; Resp 28; Temp 98.1(O); Pulse Ox 95% on R/A; tw2 10:11 BP 150 / 84; Pulse 114; Resp 19; Pulse Ox 95% on R/A; tw2 11:29 BP 150 / 80; Pulse 116; Resp 17; Pulse Ox 95% on R/A; tw2 12:30 BP 162 / 87; Pulse 110; Resp 17; Pulse Ox 95% on R/A; tw2 13:38 BP 154 / 72; Pulse 107; Resp 19; Pulse Ox 95% on R/A; tw2 MDM: 09:59 Patient medically screened. [facility] 11:04 Data reviewed: vital signs, nurses notes, lab test result(s), EKG, radiologic studies, lizzette plain films. 09/13 11:03 Order name: Basic Metabolic Panel; Complete Time: 12:28 [facility] 09/13 11:03 Order name: CBC with Diff; Complete Time: 12: [facility] 09/13 11:03 Order name: Ckmb; Complete Time: 12:28 [facility] 09/13 11:03 Order name: CPK; Complete Time: 12:28 [facility] 09/13 11:03 Order name: LFT's; Complete Time: 12:28 [facility] 09/13 11:03 Order name: Magnesium; Complete Time: 12:28 [facility] 09/13 11:03 Order name: NT PRO-BNP; Complete Time: 12:28 [facility] 09/13 11:03 Order name: PT-INR; Complete Time: 12:06 [facility] 09/13 11:03 Order name: Ptt, Activated; Complete Time: 12:06 [facility] 09/13 11:03 Order name: Troponin (emerg Dept Use Only); Complete Time: 11:53 [facility] 09/13 11:03 Order name: Lipase; Complete Time: 12:28 [facility] 09/13 11:03 Order name: Acetaminophen; Complete Time: 12:28 [facility] 09/13 11:03 Order name: ETOH Level; Complete Time: 12:28 [facility] 09/13 11:03 Order name: Salicylate; Complete Time: 12:28 [facility] 09/13 11:03 Order name: XRAY Chest (1 view); Complete Time: 11:53 [facility] 09/13 11:03 Order name: Urine Drug Screen; Complete Time: 11:53 [facility] 09/13 11:14 Order name: Urine Dipstick--Ancillary (enter results); Complete Time: 12:28 09/13 12:06 Order name: Basic Metabolic Panel EDMS 09/13 12:06 Order name: Basic Metabolic Panel EDMS 09/13 12:06 Order name: Troponin I EDMS 09/13 12:06 Order name: Troponin I EDMS 09/13 12:06 Order name: Troponin I EDMS 09/13 12:07 Order name: CBC with Automated Diff [facility] 09/13 12:07 Order name: CBC with Automated Diff [facility] 09/13 11:03 Order name: EKG; Complete Time: 11:04 [facility] 09/13 11:03 Order name: Cardiac monitoring; Complete Time: 11:17 [facility] 09/13 11:03 Order name: EKG - Nurse/Tech; Complete Time: 11: [facility] 09/13 11:03 Order name: IV Saline Lock; Complete Time: 11:19 [facility] 09/13 11:03 Order name: Labs collected and sent; Complete Time: 11: [facility] 09/13 11:03 Order name: O2 Per Protocol; Complete Time: 11: [facility] 09/13 11:03 Order name: O2 Sat Monitoring; Complete Time: 11:19 [facility] 09/13 11:03 Order name: Urine Dipstick-Ancillary (obtain specimen); Complete Time: 11: [facility] 09/13 12:07 Order name: Consistent Carb (ADA) [address] [place] EDMS 09/13 12:07 Order name: EKG Electrocardiogram EDMS 09/13 12:07 Order name: EKG Electrocardiogram EDMS 09/13 12:07 Order name: EKG Electrocardiogram EDMS 09/13 12:07 Order name: EKG Electrocardiogram EDMS Administered Medications: 11:20 Drug: Ativan 2 mg Route: IVP; Site: right forearm; tw2 12:09 Follow up: Response: No adverse reaction sv 11:27 Drug: NS 0.9% 1000 ml Route: IV; Rate: 1 bolus; Site: right forearm; tw2 11:27 Drug: Pepcid 20 mg Route: IVP; Site: right forearm; tw2 12:09 Follow up: Response: No adverse reaction sv 11:28 Drug: Thiamine 100 mg Route: IV; Rate: bolus; Site: right forearm; tw2 11:51 Drug: Magnesium Sulfate 2 grams Route: IVPB; Infused Over: 2 hrs; Site: right forearm; tw2 12:10 Drug: Banana Bag - (NS 0.9% 1000 ml, foLIC Acid 1 mg, Thiamine 100 mg, Multivitamin 1 tw2 amp) Route: IV; Rate: 150 ml/hr; Site: left antecubital; Disposition: 09/13/17 11:55 Hospitalization ordered by David Butler for Inpatient Admission. Preliminary diagnosis are Weakness, Alcohol abuse, Type 2 diabetes mellitus, Hypomagnesemia. - Bed requested for Intensive Care Unit. - Status is Inpatient Admission. ss - Condition is Fair. - Problem is new. - Symptoms have improved. UTI on Admission? No Signatures: Dispatcher [employer] Carla Funez RN Jesus iNxon MD MD cha Smirch, Shelby, RN RN ss Bernadine Jin RN RN tw2 Sarah Castanon RN sv Corrections: (The following items were deleted from the chart) 11:56 11:55 Hospitalization Ordered by David Butler MD for Inpatient Admission. Preliminary lizzette diagnosis is Weakness; Alcohol abuse. Bed requested for Telemetry/MedSurg (Inpatient). Status is Inpatient Admission. Condition is Fair. Problem is new. Symptoms have improved. UTI on Admission? No. lizzette 12:28 11:56 09/13/2017 11:55 Hospitalization Ordered by David Butler MD for Inpatient lizzette Admission. Preliminary diagnosis is Weakness; Alcohol abuse; Type 2 diabetes mellitus. Bed requested for Telemetry/MedSurg (Inpatient). Status is Inpatient Admission. Condition is Fair. Problem is new. Symptoms have improved. UTI on Admission? No. lizzette 12:38 12:28 09/13/2017 11:55 Hospitalization Ordered by David Butler MD for Inpatient dw Admission. Preliminary diagnosis is Weakness; Alcohol abuse; Type 2 diabetes mellitus; Hypomagnesemia. Bed requested for Telemetry/MedSurg (Inpatient). Status is Inpatient Admission. Condition is Fair. Problem is new. Symptoms have improved. UTI on Admission? No. lizzette 12:40 12:38 09/13/2017 11:55 Hospitalization Ordered by David Butler MD for Inpatient dw Admission. Preliminary diagnosis is Weakness; Alcohol abuse; Type 2 diabetes mellitus; Hypomagnesemia. Bed requested for Intensive Care Unit. Status is Inpatient Admission. Condition is Fair. Problem is new. Symptoms have improved. UTI on Admission? No. dw 14:01 12:40 09/13/2017 11:55 Hospitalization Ordered by David Butler MD for Inpatient ss Admission. Preliminary diagnosis is Weakness; Alcohol abuse; Type 2 diabetes mellitus; Hypomagnesemia. Bed requested for Intensive Care Unit. Status is Inpatient Admission. Condition is Fair. Problem is new. Symptoms have improved. UTI on Admission? No. dw
[2017-09-13 11:57] LABS: Protime INR 0.97
[2017-09-13] MEDS ORDERED: NA CHLORIDE 0.9% 1,000 ML with FOLIC ACID 1 MG, THIAMINE HCL 100 MG, MULTIVITAMINS INJ ... IV ONE ×4 (12:00)
[2017-09-13] MEDS ORDERED: ACETAMINOPHEN 325 MG TABLET PO PRN (12:04)
[2017-09-13] MEDS ORDERED: ONDANSETRON 4 MG/2 ML VIAL IV PRN (12:04)
[2017-09-13] MEDS ORDERED: GLUCAGON 1 MG/VIAL IM PRN (12:06)
[2017-09-13] MEDS ORDERED: D50W 25 GM/50 ML SYRINGE IV PRN (12:06)
[2017-09-13 12:11] LABS: Urine Blood TRACE (NEG); Urine Glucose 1+ (NEG); Urine Protein TRACE (NEG); Urine Specific Gravity <1.005 (1.005-1.030)
[2017-09-13 12:24] LABS: ALT/SGPT 83 U/L (12-78); AST/SGOT 43 U/L (15-37); Albumin 3.9 g/dL (3.4-5.0); Alkaline Phosphatase 88 U/L (45-117); BUN Blood Urea Nitrogen 12 mg/dL (7-18); Bicarbonate 22 mmol/L (21-32); Bilirubin Direct 0.2 mg/dL (0-0.2); Bilirubin Total 0.5 mg/dL (0.2-1.0); CKMB Creatine Kinase MB 1.7 ng/mL (0.3-3.6); Creatine Phosphokinase 137 U/L (39-308); Glucose Level 166 mg/dL (74-106); Lipase 152 U/L (73-393); Magnesium 1.5 mg/dL (1.8-2.4); NT PRO-BNP 11 pg/mL (<125); Potassium 3.9 mmol/L (3.5-5.1); Protein, Total 7.7 g/dL (6.4-8.2); Sodium Level 133 mmol/L (136-145)
[2017-09-13 12:25] LABS: Alcohol Serum/Plasma 188 mg/dL (0-3)
--- NOTE | 2017-09-13 13:24 | EKG ---
Test Date: 2017-09-13 Test Time: 09:55:53 Nipple Threader: FLOR MEASUREMENT RESULTS: Intervals: Rate: 114 WY: 154 QRSD: 86 QT: 326 QTc: 449 [place]: P: 44 W[place]: 154 QRS: 37 T: 25 INTERPRETIVE STATEMENTS: Sinus tachycardia Cannot rule out Anterior infarct, age undetermined Abnormal ECG Compared to ECG 07/08/2017 16:16:00 Myocardial infarct finding now present Sinus rhythm no longer present Electronically Signed On 09-13-17 13:23:29 CDT by Logan Taylor
[2017-09-13] MEDS ORDERED: LORazepam 2 MG/ML VIAL IV PRN (14:26)
[2017-09-13] MEDS: LORazepam 2 MG/ML VIAL IV PRN ×3 (14:47→20:59)
[2017-09-13 15:07] VITALS: BMI 42.3
[2017-09-13] MEDS: INSULIN -REGULAR HUMAN 50 UNIT/0.5 ML ML SQ SCH ×2 (16:30→20:21)
--- NOTE | 2017-09-13 16:44 | ECHO ---
HEIGHT: 6 ft 1 in WEIGHT: 321 lb 3 oz DATE OF STUDY: 09/13/[address]: Logan Taylor MD 2-DIMENSIONAL: YES M.MODE: YES DOPPLER: YES COLOR FLOW: YES TDS: YES PORTABLE: YES DEFINITY: NO BUBBLE STUDY: NO DIAGNOSIS: ABNORMAL EKG, CARDIOMYOPATHY CARDIAC HISTORY: CATHERIZATION: NO SURGERY: NO PROSTHETIC VALVE: NO PACEMAKER: NO MEASUREMENTS (cm) DIASTOLIC (NORMALS) SYSTOLIC (NORMALS) IVSd 1.0 (0.6-1.2) LA Diam 2.6 (1.9-4.0) LVEF 69% LVIDd 3.9 (3.5-5.7) LVIDs 2.4 (2.0-3.5) %FS 38% LVPWd 1.2 (0.6-1.2) Ao Diam 3.1 (2.0-3.7) 2 DIMENSIONAL ASSESSMENT: RIGHT ATRIUM: NORMAL LEFT ATRIUM: NORMAL RIGHT VENTRICLE: NORMAL LEFT VENTRICLE: NORMAL TRICUSPID VALVE: NORMAL MITRAL VALVE: NORMAL PULMONIC VALVE: NORMAL AORTIC VALVE: NORMAL PERICARDIAL EFFUSION: NONE AORTIC ROOT: NORMAL LEFT VENTRICULAR WALL MOTION: NORMAL DOPPLER/COLOR FLOW: IMPAIRED LEFT VENTRICULAR RELAXATION, OTHERWISE NORMAL. COMMENTS: NORMAL 2D ECHOCARDIOGRAM. IMPAIRED LEFT VENTRICULAR RELAXATION, OTHERWISE NORMAL CARDIAC DOPPLER. TECHNOLOGIST: Marry MCLEAN
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
[2017-09-13] MEDS: FAMOTIDINE 20 MG TAB PO SCH (20:55)
[2017-09-13] MEDS ORDERED: FAMOTIDINE 20 MG/2 ML VIAL IV SCH (21:00)
[2017-09-14] MEDS: LORazepam 2 MG/ML VIAL IV PRN ×3 (02:31→09:27)
[2017-09-14 05:18] LABS: Absolute Lymphocytes (CBC) 1.5 K/uL (0.7-4.9); Absolute Monocytes 0.7 K/uL (0.1-1.3); Absolute Neutrophil 3.4 K/uL (1.8-8.0); Basophils % 0.7 % (0-1.3); Eosinophils % 0.7 % (0-4.4); Hematocrit 42.2 % (39.6-49.0); Lymphocytes % 26.6 % (15.3-44.8); MCH 31.7 pg (27.0-35.0); MCV 90.9 fL (80-100); MPV 7.9 fL (7.6-11.3); Monocytes % 12.5 % (3.3-12.3); RBC Red Blood Cell Count 4.65 M/uL (4.33-5.43)
[2017-09-14 05:37] LABS: BUN Blood Urea Nitrogen 14 mg/dL (7-18); Bicarbonate 28 mmol/L (21-32); Glucose Level 122 mg/dL (74-106); Potassium 3.7 mmol/L (3.5-5.1); Sodium Level 136 mmol/L (136-145)
[2017-09-14] MEDS: INSULIN -REGULAR HUMAN 50 UNIT/0.5 ML ML SQ SCH (07:30)
[2017-09-14] MEDS ORDERED: METFORMIN HCL 500 MG TAB PO SCH (08:00)
[2017-09-14] MEDS ORDERED: GLIPIZIDE 20 MG PO SCH (08:00)
[2017-09-14] MEDS ORDERED: glipiZIDE 5 MG TAB PO SCH (08:00)
[2017-09-14] MEDS: FAMOTIDINE 20 MG TAB PO SCH (08:18)
[2017-09-14] MEDS ORDERED: ASPIRIN EC 81 MG TAB PO SCH (09:00)
[2017-09-14] MEDS ORDERED: FOLIC ACID 1 MG TABLET PO SCH ×2 (09:00)
[2017-09-14] MEDS ORDERED: LISINOPRIL 20 MG TAB PO SCH (09:00)
[2017-09-14] MEDS ORDERED: MULTIVITAMIN TAB PO SCH (09:00)
[2017-09-14] MEDS ORDERED: THIAMINE 200 MG/2 ML INJ IVP SCH (09:00)
[2017-09-14 09:09] VITALS: O2SAT 96
[2017-09-14 09:57] VITALS: BP 152/90; TEMP 97.4
--- NOTE | 2017-09-14 12:14 | EKG ---
Test Date: 2017-09-14 Test Time: 07:27:49 [employer] Pharmacy Technician: FLOR MEASUREMENT RESULTS: Intervals: Rate: 90 [place]: 168 QRSD: 88 QT: 364 QTc: 445 [place]: P: 39 [place]: 168 QRS: 18 T: 17 INTERPRETIVE STATEMENTS: Normal sinus rhythm Normal ECG Compared to ECG 09/13/2017 09:55:53 Sinus tachycardia no longer present Myocardial infarct finding no longer present Electronically Signed On 09-14-17 12:11:51 CDT by Marc Rodriguez
--- NOTE | 2017-09-14 18:27 | PN ---
Date of Progress Note: 09/13/2017 The patient is seen in the ICU. He is slightly tachycardiac and is tremulous; however, he is respons marissa, orientated, and patient instructed to remain in the hospital on this admission unlike his last o ne which he neglected to sign out but left AMA until he is cleared for discharge. We will continue o n the alcohol withdrawal protocol. HR/MODL Voice ID: [id number] Report ID: [id number]
[2017-09-16] MEDS ORDERED: LORazepam 2 MG/ML VIAL IV PRN (14:28)
[2017-09-17] MEDS ORDERED: LORazepam 2 MG/ML VIAL IV PRN (14:29)
== END 2017-09-14 09:45 | disposition left against medical advice (07) | DRG 894 ==
LOC: ER 09:42 → ERHOLD 11:57 → 3RD-ICU 13:40
PROVIDERS: ADMIT Family Medicine; ATTEND Family Medicine
DX: F10.239 Alcohol dependence with withdrawal, unspecified (principal); Z68.41 Body mass index [BMI] 40.0-44.9, adult; E66.01 Morbid (severe) obesity due to excess calories; E11.9 Type 2 diabetes mellitus without complications; E83.42 Hypomagnesemia; Z98.84 Bariatric surgery status; I10 Essential (primary) hypertension; Z79.84 Long term (current) use of oral hypoglycemic drugs
CPT/HCPCS: 36415; 71045; 80048; 80076; 80307; 80320; 80329; 81003; 82550; 82553; 82962; 83690; 83735; 83880; 84484; 85025; 85610; 85730; 93005; 93306; 99285; J3411; J3475; J7030

== ENCOUNTER 2023-12-27 08:38 | Emergency (ER) | payer OTHER ==
[2023-12-27 09:11] LABS: Absolute Basophils 0.1 K/uL (0-0.5); Absolute Eosinophils 0.1 K/uL (0-0.5); Absolute Lymphocytes (CBC) 2.1 K/uL (0.7-4.9); Absolute Monocytes 0.7 K/uL (0.1-1.3); Absolute Neutrophil 6.6 K/uL (1.8-8.0); Basophils % 0.5 % (0-1.3); Eosinophils % 0.8 % (0-4.4); Hematocrit 47.8 % (39.6-49.0); Hemoglobin 16.3 g/dL (13.6-17.9); Lymphocytes % 21.6 % (15.3-44.8); MCH 32.2 pg (27.0-35.0); MCHC 34.1 g/dL (32.0-36.0); MCV 94.4 fL (80-100); MPV 6.8 fL (7.6-11.3); Monocytes % 7.4 % (3.3-12.3); Neutrophils % 69.7 % (41.7-73.7); Nucleated Red Blood Cells % 0.1 % (0-0); Platelets 225 thou/uL (152-406); RBC Red Blood Cell Count 5.06 M/uL (4.33-5.43); Red Cell Distribution Width 14.1 % (12.1-15.2)
[2023-12-27 09:14] LABS: Protime INR 0.89
[2023-12-27 09:46] LABS: Albumin 3.9 g/dL (3.4-5.0); Anion Gap 19.1 mEq/L (5.0-15.0); Bilirubin Direct 0.2 mg/dL (0-0.2); Bilirubin Indirect, Calculated 0.6 mg/dL (0.2-0.8); Bilirubin Total 0.8 mg/dL (0.2-1.0); Globulin 4.1 g/dL (2.3-3.5); Magnesium 1.6 mg/dL (1.6-2.4); Potassium 4.1 mEq/L (3.5-5.1); Troponin High Sensitivity 13.8 pg/mL (<58.9)
--- NOTE | 2023-12-27 11:39 | ER ---
Nurse's Notes [facility] [place], [place] [facility] Name: Jim Hays Age: 53 yrs Sex: Male : 1970 Arrival Date: 12/27/2023 Time: 08:38 Bed 16 Private MD: Diagnosis: Chest pain, unspecified Presentation: 12/26 08:40 Chief complaint: EMS states: Toned out to [place] [facility] for Chest pressure since 0400, jl7 resolved at this time. Pt reported right hand and lip tingling when he woke up, resolved. 08:40 Coronavirus screen: At this time, the client does not indicate any symptoms associated jl7 with coronavirus-19. Ebola Screen: No symptoms or risks identified at this time. Initial Sepsis Screen: Does the patient meet any 2 criteria? No. Patient's initial sepsis screen is negative. Does the patient have a suspected source of infection? No. Patient's initial sepsis screen is negative. Risk Assessment: Do you want to hurt yourself or someone else? Patient reports no desire to harm self or others. Onset of symptoms was December 27, 2023 at 04:00. Care prior to arrival: Medication(s) given: ASA, 81 mg, x 4. 08:40 Method Of Arrival: EMS: [facility] jl7 08:40 Acuity: IVON 2 jl7 Triage Assessment: 08:40 General: Appears in no apparent distress. uncomfortable, Behavior is calm, cooperative, jl7 appropriate for age. Pain: Denies pain. Cardiovascular: Reports chest pain, midsternal chest pressure, resolved Heart tones present. Derm: Skin is pink, warm \T\ dry. Historical: - Allergies: 09:11 No Known Allergies; jl7 - Home Meds: 09:42 Bupropion Oral [Active]; empagliflozin 25 mg oral tablet daily [Active]; Fexofenadine jl7 HCl Oral [Active]; metformin 500 mg Oral tr24 1 tab twice a day [Active]; losartan oral [Active]; - PMHx: 09:11 Alcoholism; Diabetes - NIDDM; Hypertension; jl7 09:42 insomnia; PTSD; hyperlipidemia; jl7 - Immunization history:: Adult Immunizations unknown. - Infectious Disease History:: Denies. - Social history:: Smoking status: Patient denies any tobacco usage or history of. Screenin:00 [facility] ED Fall Risk Assessment (Adult) History of falling in the last 3 months, jl7 including since admission No falls in past 3 months (0 pts) Confusion or Disorientation No (0 pts) Intoxicated or Sedated No (0 pts) Impaired Gait No (0 pts) Mobility Assist Device Used No (0 pt) Altered Elimination No (0 pt) Score/Fall Risk Level 0 - 2 = Low Risk Oriented to surroundings, Maintained a safe environment. Abuse screen: Denies threats or abuse. Denies injuries from another. Nutritional screening: No deficits noted. Tuberculosis screening: No symptoms or risk factors identified. Assessment: 10:00 Reassessment: Patient appears in no apparent distress at this time. No changes from 7 previously documented assessment. Patient and/or family updated on plan of care and expected duration. Pain level reassessed. Patient is alert, oriented x 3, equal unlabored respirations, skin warm/dry/pink. Patient states symptoms have improved. 11:00 Reassessment: Patient appears in no apparent distress at this time. No changes from jl7 previously documented assessment. Patient and/or family updated on plan of care and expected duration. Pain level reassessed. Patient is alert, oriented x 3, equal unlabored respirations, skin warm/dry/pink. Vital Signs: 08:40 BP 157 / 81; Pulse 102; Resp 16; Temp 98.9; Pulse Ox 99% ; Weight 134.72 kg; Height 6 jl7 ft. 1 in. ; Pain 0/10; 09:37 BP 158 / 88; Pulse 114; Resp 19; Pulse Ox 97% ; jl7 11:00 BP 149 / 91; Pulse 113; Resp 15; Pulse Ox 98% ; jl7 08:40 Body Mass Index 39.18 (134.72 kg, 185.42 cm) jl7 08:40 Pain Scale: Adult jl7 ED Course: 08:39 Patient arrived in ED. sb4 08:39 Edith Albrecht PA-C is PHCP. sb4 08:39 Pavan Oleary MD is Attending Physician. sb4 08:40 Arm band placed on right wrist. Patient placed in an exam room. jl7 08:57 Initial lab(s) drawn, by az, sent to lab. Inserted saline lock: 20 gauge in left jl7 antecubital area, using aseptic technique. Blood collected. Flushed with 10 mL NS. 08:57 Patient maintains SpO2 saturation greater than 95% on room air. jl7 09:07 Balwinder Amezquita, RN is Primary Nurse. jl7 09:11 Triage completed. jl7 10:23 XRAY Chest (1 view) In Process Unspecified. EDMS 11:00 Patient has correct armband on for positive identification. Provided Education on: use jl7 of call richard. Client placed on continuous cardiac and pulse oximetry monitoring. NIBP monitoring applied. 11:18 Repeat lab(s) drawn. by me, sent to lab. zm 11:38 Willie Mclaughlin MD is Referral Physician. sb4 12:05 No provider procedures requiring assistance completed. IV discontinued, intact, jl7 bleeding controlled, No redness/swelling at site. Pressure dressing applied. Administered Medications: No medications were administered Medication: 11:00 VIS not applicable for this client. jl7 Outcome: 11:38 Discharge ordered by MD. sb4 12:05 Discharged to home ambulatory, jl7 12:05 Condition: stable 12:05 Discharge instructions given to patient, Instructed on discharge instructions, follow up and referral plans. Demonstrated understanding of instructions, follow-up care, 12:05 Patient left the ED. jl7 Signatures: Dispatcher [employer] Balwinder Andrews RN RN jl7 Anne Senior Sophia, PA-C PAXochitlC sb4 Corrections: (The following items were deleted from the chart) 09:31 08:40 BP 157 / 81; Pulse 102bpm; Resp 99bpm; Pulse Ox 99%; Temp 98.9F; 134.72 kg; jl7 Height 6 ft. 1 in.; BMI: 39.1; Pain 0/10, Adult; jl7
--- NOTE | 2023-12-27 11:39 | EDPHYS ---
Physician Documentation [facility] Name: Jim Hays Age: 53 yrs Sex: Male : 1970 Arrival Date: 12/27/2023 Time: 08:38 Bed 16 Private MD: ED Physician Pavan Oleary HPI: 12/26 08:53 This 53 yrs old Male presents to ER via EMS with complaints of chest pain. sb4 08:53 The patient or guardian reports chest pain that is located primarily in the substernal sb4 area. Onset: 2 month(s) ago, and became worse this morning. The pain does not radiate. Associated signs and symptoms: Pertinent positives: lightheadedness, right hand numbness, visual changes. The chest pain is described as a heaviness. Duration: The patient or guardian reports multiple episodes. Modifying factors: The symptoms are alleviated by rest, the symptoms are aggravated by emotionally stressful situations. EMS care prior to arrival includes: aspirin. Historical: - Allergies: 09:11 No Known Allergies; jl7 - Home Meds: 09:42 Bupropion Oral [Active]; empagliflozin 25 mg oral tablet daily [Active]; Fexofenadine jl7 HCl Oral [Active]; metformin 500 mg Oral tr24 1 tab twice a day [Active]; losartan oral [Active]; - PMHx: 09:11 Alcoholism; Diabetes - NIDDM; Hypertension; jl7 09:42 insomnia; PTSD; hyperlipidemia; jl7 - Immunization history:: Adult Immunizations unknown. - Infectious Disease History:: Denies. - Social history:: Smoking status: Patient denies any tobacco usage or history of. ROS: 08:54 Constitutional: Negative for fever, chills, and weight loss, sb4 08:54 Cardiovascular: Positive for chest pain, 08:54 Psych: Positive for anxiety, 08:54 All other systems are negative, Exam: 08:54 Head/Face: Normocephalic, atraumatic. Eyes: Extra-ocular motions intact. Periorbital sb4 areas with no swelling, redness, or edema. ENT: Mucous membranes moist. Cardiovascular: Regular rate and rhythm with a normal S1 and S2. Respiratory: No increased work of breathing, no retractions or nasal flaring. Abdomen/GI: Soft, non-tender, no distension. Skin: Warm, dry with normal turgor. Normal color with no rashes, no lesions, and no evidence of cellulitis. MS/ Extremity: Pulses equal, no cyanosis. Neurovascular intact. Full, normal range of motion. Neuro: Awake and alert, GCS 15, oriented to person, place, time, and situation. Motor strength 5/5 in all extremities. Sensory grossly intact. 08:54 Constitutional: The patient appears alert, awake, anxious, Vital Signs: 08:40 BP 157 / 81; Pulse 102; Resp 16; Temp 98.9; Pulse Ox 99% ; Weight 134.72 kg; Height 6 jl7 ft. 1 in. ; Pain 0/10; 09:37 BP 158 / 88; Pulse 114; Resp 19; Pulse Ox 97% ; jl7 11:00 BP 149 / 91; Pulse 113; Resp 15; Pulse Ox 98% ; jl7 08:40 Body Mass Index 39.18 (134.72 kg, 185.42 cm) jl7 08:40 Pain Scale: Adult jl7 MDM: 08:51 Medical Screening Exam initiated sb4 09:50 The patient was not given aspirin in the Emergency Department. Administered by EMS. sb4 Data reviewed: vital signs, nurses notes, EMS record, lab test result(s), EKG, radiologic studies. Consideration of Admission/Observation Escalation of care including admission/observation considered. Scoring Tools HEART Score: History: ECG: Age: Risk Factors: > or = 3 Risk factors for atherosclerotic disease (2), Troponin: Total Score = 4. 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 Special discussion: Based on the patient's history, exam, and Dx evaluation, there is no indication for emergent intervention or inpatient Tx. It is understood by the patient/guardian that if the Sx's persist or worsen they need to return immediately for re-evaluation. 12/26 08:51 Order name: Basic Metabolic Panel; Complete Time: 09:46 sb4 12/26 08:51 Order name: CBC with Diff; Complete Time: 09:14 sb4 12/26 08:51 Order name: LFT's; Complete Time: 09:46 sb4 12/26 08:51 Order name: Magnesium; Complete Time: 09:46 sb4 12/26 08:51 Order name: NT PRO-BNP; Complete Time: 09:46 sb4 12/26 08:51 Order name: PT-INR; Complete Time: 09:16 sb4 12/26 08:51 Order name: Troponin HS; Complete Time: 09:46 sb4 12/26 10:56 Order name: Troponin High Sensitivity; Complete Time: 11:34 sb4 12/26 08:51 Order name: XRAY Chest (1 view) sb4 12/26 08:51 Order name: Cardiac monitoring; Complete Time: 09:13 sb4 12/26 08:51 Order name: EKG - Nurse/Tech; Complete Time: 09:13 sb4 12/26 08:51 Order name: IV Saline Lock; Complete Time: 09:13 sb4 12/26 08:51 Order name: Labs collected and sent; Complete Time: 09:13 sb4 12/26 08:51 Order name: O2 Per Protocol; Complete Time: 09:13 sb4 12/26 08:51 Order name: O2 Sat Monitoring; Complete Time: 09:13 sb4 12/26 09:49 Order name: Misc. Order: repeat trop at 1100; Complete Time: 11:18 sb4 EC:52 Rate is 105 beats/min. Rhythm is regular, Sinus tachycardia. VA interval is normal at sb4 156 msec. QRS interval is normal at 82 msec. QT interval is normal at 332 msec. No Q waves. T waves are Normal. No ST changes noted. Clinical impression: No evidence of ischemia. Interpreted by me. Reviewed by me. Administered Medications: No medications were administered Disposition: 17:20 Co-signature as Attending Physician, Pavan Oleary MD I reviewed the patient's care rn provided by the Advanced Practice Provider and agree with the diagnosis and treatment plan. Disposition Summary: 12/27/23 11:38 Discharge Ordered Notes: Location: Home sb4 Problem: new sb4 Symptoms: have improved sb4 Condition: Stable sb4 Diagnosis - Chest pain, unspecified sb4 Followup: sb4 - With: Willie Mclaughlin MD - When: 1 week - Reason: Further diagnostic work-up, Recheck today's complaints, Re-evaluation by your physician Discharge Instructions: - Discharge Summary Sheet sb4 - Nonspecific Chest Pain, Adult, [id number] sb4 Forms: - Patient Portal Instructions sb4 - Leadership Thank You Letter sb4 Signatures: Dispatcher [employer] Pavan Burrell MD MD rn Leal, Jahala, RN RN jl7 Brown, Sophia, PAXochitlC PA-C sb4 Corrections: (The following items were deleted from the chart) 08:52 08:52 BASIC METABOLIC PANEL+C.LAB.BRZ ordered. EDMS EDMS 08:52 08:52 CBC+H.LAB.BRZ ordered. EDMS EDMS 08:52 08:52 HEPATIC FUNCTION+C.LAB.BRZ ordered. EDMS EDMS 08:52 08:52 MAGNESIUM+C.LAB.BRZ ordered. EDMS EDMS 08:52 08:52 PROBNP+C.LAB.BRZ ordered. EDMS EDMS 08:52 08:52 PROTIME (+INR)+COAG.LAB.BRZ ordered. EDMS EDMS 08:52 08:52 Troponin High Sensitivity+C.LAB.BRZ ordered. EDMS EDMS 08:52 08:52 Chest Single View+RAD.RAD.BRZ ordered. EDMS EDMS 10:56 10:56 Troponin High Sensitivity+C.LAB.BRZ ordered. EDMS EDMS
[2023-12-27 12:27] VITALS: TEMP 98.9
[2023-12-27 12:30] VITALS: BP 149/91; O2SAT 98
--- NOTE | 2023-12-27 13:10 | RAD REPORT ---
EXAMINATION: ONE VIEW CHEST XR CLINICAL INDICATION: Male, 53 years old.,CHEST PAIN TECHNIQUE: Frontal chest projection is submitted. Examination is limited by patient positioning and t echnique. COMPARISON: 09/13/2017 FINDINGS: The lungs are well inflated and clear. No pneumothorax or sizable effusion. The heart is normal in s ize. Mediastinal contours are unremarkable. Left chest wall implantable device, may represent a rhythm monitoring device again seen. Lap band in place. IMPRESSION: No acute intrathoracic abnormalities.
--- NOTE | 2023-12-28 12:22 | EKG ---
Test Date: 2023-12-27 Test Time: 08:46:28 Well Head Pumper: SAUL MEASUREMENT RESULTS: Intervals: Rate: 105 FL: 156 QRSD: 82 QT: 332 QTc: 438 [place]: P: 54 FL: 156 QRS: 51 T: 32 INTERPRETIVE STATEMENTS: Sinus tachycardia Low voltage QRS Borderline ECG Compared to ECG 09/14/2017 07:27:49 Low QRS voltage now present Sinus rhythm no longer present Electronically Signed On 12-28-23 12:17:38 SUBSTATION OPERATOR CONVERSION by Temo Donnelly
== END 2023-12-27 12:05 | disposition home or self-care (01) ==
LOC: ER 08:38
DX: R07.9 Chest pain, unspecified (principal); I10 Essential (primary) hypertension; E11.9 Type 2 diabetes mellitus without complications; F10.20 Alcohol dependence, uncomplicated
CPT/HCPCS: 36415; 71045; 80048; 80076; 83735; 83880; 84484; 85025; 85610; 93005; 99284

== ENCOUNTER 2024-06-28 04:09 | Emergency (ER) | payer OTHER ==
[2024-06-28] MEDS ORDERED: KETOROLAC 30 MG/ML INJ ONE (04:26)
[2024-06-28] MEDS ORDERED: droPERidol 5 MG/2 ML VIAL ONE (04:26)
[2024-06-28] MEDS ORDERED: LORAZEPAM 1 MG TABLET ONE (04:27)
[2024-06-28] MEDS ORDERED: THIAMINE 200 MG/2 ML INJ ONE (04:35)
[2024-06-28] MEDS ORDERED: MULTIVITAMINS 10 ML VIAL (INJ) IV ONE (04:36)
[2024-06-28] MEDS ORDERED: CEFAZOLIN SODIUM 1 GM/VIAL ONE (04:36)
[2024-06-28] MEDS ORDERED: NA CHLORIDE 0.9% 1,000 ML ONE (04:38)
[2024-06-28] MEDS ORDERED: TDAP (DIPHTH,PERTUSS(ACELL),TET VAC) 0.5 ML VIAL IMVAC ONE (04:38)
[2024-06-28] MEDS ORDERED: FOLIC ACID 5 MG/ML VIAL ONE (04:38)
[2024-06-28] MEDS ORDERED: NA CHLORIDE 0.9% 50 ML ONE (04:38)
[2024-06-28 04:39] LABS: Absolute Basophils 0.1 K/uL (0-0.5); Absolute Monocytes 0.6 K/uL (0.1-1.3); Absolute Neutrophil 6.6 K/uL (1.8-8.0); Basophils % 0.8 % (0-1.3); Eosinophils % 0.4 % (0-4.4); Hematocrit 46.7 % (39.6-49.0); Hemoglobin 16.7 g/dL (13.6-17.9); Lymphocytes % 29.4 % (15.3-44.8); MCH 31.6 pg (27.0-35.0); MCHC 35.7 g/dL (32.0-36.0); MCV 88.4 fL (80-100); MPV 7.5 fL (7.6-11.3); Monocytes % 5.6 % (3.3-12.3); Neutrophils % 63.8 % (41.7-73.7); Nucleated Red Blood Cells % 0.2 % (0-0); Platelets 263 thou/uL (152-406); RBC Red Blood Cell Count 5.29 M/uL (4.33-5.43)
--- NOTE | 2024-06-28 04:48 | EDPHYS ---
Physician Documentation [facility] Name: Jim Hays Age: 53 yrs Sex: Male : 1970 Arrival Date: 06/28/2024 Time: 04:09 Bed 16 Private MD: ED Physician Luis Colón HPI: 06/28 04:37 This 53 yrs old Male presents to ER via Unassigned with complaints of sp4 Suicidal Ideation. 04:37 53-year-old male presents with complaint of alcohol abuse, recent fall, facial injury sp4 and suicidal ideation. Patient states that he has been binge drinking and yesterday he was intoxicated and fell off the porch and hit the left side of his face. Patient today called suicide hotline and reported that he wants to kill himself. Patient has left-sided facial contusion left periorbital contusion and swelling multiple facial abrasions.. Historical: - Allergies: 04:10 No Known Allergies; ha1 - Home Meds: 04:10 losartan oral [Active]; metformin 500 mg Oral tr24 1 tab twice a day [Active]; ha1 - PMHx: 04:10 Alcoholism; Diabetes - NIDDM; Hyperlipidemia; Hypertension; insomnia; PTSD; ha1 - Immunization history:: Adult Immunizations unknown. - Infectious Disease History:: Denies. - Family history:: not pertinent. - Social history:: Smoking status: unknown. ROS: 04:37 Constitutional: Negative for fever, chills, and weight loss, positive for depression, sp4 positive for alcohol abuse, positive suicidal ideation, positive for left periorbital left facial contusions, positive for facial abrasions 04:37 All other systems are negative, Exam: 04:37 Constitutional: This is a well developed, well nourished patient who is awake, alert, sp4 and in no acute distress. Head/Face: Normocephalic, left-sided facial abrasions, left-sided facial swelling and contusions, left periorbital swelling and discoloration, operant lower eyelids discoloration on the left Eyes: Pupils equal round and reactive to light, extra-ocular motions intact. Lids and lashes normal. Conjunctiva and sclera are not injected. Cornea within normal limits. Left periorbital swelling and discoloration. ENT: Nares patent. No nasal discharge, no septal abnormalities noted. Tympanic membranes are normal and external auditory canals are clear. Oropharynx with no redness, swelling, or masses, exudates, or evidence of obstruction, uvula midline. Mucous membranes moist. Neck: Trachea midline, no thyromegaly or masses palpated, and no cervical lymphadenopathy. Supple, full range of motion without nuchal rigidity, or vertebral point tenderness. Chest/axilla: Normal chest wall appearance and motion. Nontender with no deformity. No lesions are appreciated. Cardiovascular: Regular rate and rhythm with a normal S1 and S2. No gallops, murmurs, or rubs. Normal PMI, no JVD. No pulse deficits. Respiratory: Lungs have equal breath sounds bilaterally, clear to auscultation and percussion. No rales, rhonchi or wheezes noted. No increased work of breathing, no retractions or nasal flaring. Abdomen/GI: Soft, with normal bowel sounds. No distension or tympany. No guarding or rebound. No evidence of tenderness throughout. Back: No spinal tenderness. No costovertebral tenderness. Skin: Warm, dry with normal turgor. Normal color with no rashes, no lesions, and no evidence of cellulitis. MS/ Extremity: Pulses equal, no cyanosis. Neurovascular intact. Full, normal range of motion. Neuro: Awake and alert, GCS 15, oriented to person, place, time, and situation. Cranial nerves II-XII grossly intact. Motor strength 5/5 in all extremities. Sensory grossly intact. Psych: Awake, alert, with orientation to person, place and time. Behavior, mood, and affect are within normal limits 04:43 ECG was reviewed by the Attending Physician. Positive for sinus tachycardia rate 110, sp4 EKG time 0 418 Vital Signs: 04:10 BP 158 / 105; Pulse 112; Resp 18 S; Temp 98.6; Pulse Ox 98% ; Weight 136.08 kg; Height ha1 6 ft. 1 in. ; Pain 7/10; 05:30 BP 179 / 82; Pulse 105; Resp 18; Pulse Ox 97% on R/A; Pain 6/10; rg5 06:53 BP 168 / 95; Pulse 108; Resp 18; Pulse Ox 100% ; Pain 3/10; rg5 04:10 Body Mass Index 39.58 (136.08 kg, 185.42 cm) ha1 04:10 Pain Scale: Adult ha1 05:30 Pain Scale: Adult rg5 06:53 Pain Scale: Adult rg5 Drew Coma Score: 04:37 Eye Response: spontaneous(4). Motor Response: obeys commands(6). Verbal Response: sp4 oriented(5). Total: 15. MDM: 04:21 Medical Screening Exam initiated sp4 04:41 Differential diagnosis: drug withdrawal. acute psychotic break, depression, psychosis sp4 secondary to non-compliance. Data reviewed: vital signs, nurses notes, lab test result(s), EKG, radiologic studies, CT scan. Consideration of Admission/Observation Escalation of care including admission/observation considered. ED course: Patient will be evaluated for medical conditions. And cleared for transfer to psychiatric hospital . . 06:53 ED course: FINDINGS: There is no acute hemorrhage, mass effect or midline shift. sp4 Suarez-white differentiation is preserved. There is no hydrocephalus. There is no significant volume loss for age. There is a small left frontal scalp hematoma measuring 2.2 cm with moderate left frontal and periorbital soft tissue swelling. The calvarium is intact. Orbits and globes are unremarkable. The paranasal sinuses are clear. Mastoid air cells are clear. IMPRESSION: No acute intracranial findings . ED course: TECHNIQUE: CT MAXILLOFACIAL WITHOUT IV CONTRAST on 06/28/2024 4:19 AM CDT This exam was performed according to our departmental dose-optimization program, which includes automated exposure control, adjustment of the mA and/or kV according to patient size and/or use of iterative reconstruction technique. FINDINGS: There is no acute fracture. The paranasal sinuses are clear. There is extensive left periorbital soft tissue swelling as well as left frontal scalp soft tissue swelling. Mastoid air cells are clear. Temporomandibular joints are intact. There is left frontal scalp hematoma. IMPRESSION: Soft tissue injuries without acute fracture. Electronically signed by: Merritt Hawley MD 06/28/2024. 06:56 ED course: Patient reports that he is not a danger to himself, he denies suicidal sp4 ideation or plan. Patient requested to be discharged from the emergency department. Patient declared in front of witnesses that he is not suicidal. We will advised patient to discontinue alcohol abuse, join alcoholic Anonymous or similar group, attend rehab for alcohol abuse. At this time stable for discharge home.. 06/28 04:20 Order name: Acetaminophen; Complete Time: 06:04 06/28 04:20 Order name: Basic Metabolic Panel; Complete Time: 06:04 06/28 04:20 Order name: CBC with Diff; Complete Time: 06:04 06/28 04:20 Order name: ETOH Level; Complete Time: 06:04 06/28 04:20 Order name: Hepatic Function; Complete Time: 06:04 06/28 04:20 Order name: PT-INR; Complete Time: 06:04 06/28 04:20 Order name: Ptt, Activated; Complete Time: 06:04 06/28 04:20 Order name: Salicylate; Complete Time: 06:04 06/28 04:20 Order name: Urine Drug Screen 06/28 06:05 Order name: BMP; Complete Time: 06:51 06/28 06:05 Order name: Alcohol Level; Complete Time: 06:51 06/28 04:19 Order name: CT Facial Bones W/O Con; Complete Time: 06:51 06/28 04:20 Order name: CT Head Brain wo Cont; Complete Time: 06:51 06/28 04:20 Order name: EKG - Nurse/Tech; Complete Time: 04:51 06/28 04:20 Order name: IV Saline Lock; Complete Time: 04:51 06/28 04:20 Order name: Labs collected and sent; Complete Time: 04:51 06/28 04:20 Order name: Suicide Precautions; Complete Time: 04:51 06/28 04:20 Order name: Suicide Screening ([place]); Complete Time: 04:52 sp4 EC:18 Rate is 110 beats/min. Rhythm is regular, Sinus tachycardia. QRS [place] is Normal. [place] sp4 interval is normal. QRS interval is normal. QT interval is normal. No Q waves. T waves are Normal. No ST changes noted. Clinical impression: No evidence of ischemia. Interpreted by me. Reviewed by me. Administered Medications: 04:30 Drug: LORazepam PO 1 mg PO once Route: PO; rg5 05:18 Follow up: Response: No adverse reaction rg5 04:30 Drug: Ketorolac IVP 30 mg IVP once Route: IVP; Site: right forearm; rg5 05:18 Follow up: Response: Adverse reaction, Physician notified; Pain is decreased rg5 04:30 Drug: Droperidol IVP 2.5 mg IVP once Route: IVP; Site: left antecubital; rg5 05:18 Follow up: Response: No adverse reaction; Pain is decreased rg5 04:50 Drug: ceFAZolin IVPB 1 grams 50 ml IVPB once over 30 mins Volume: 50 ml; Route: IVPB; rg5 Infused Over: 30 mins; Site: left forearm; 05:18 Follow up: IV Status: Completed infusion; IV Intake: 50ml rg5 04:52 Drug: Boostrix Tdap IM 0.5 ml IM once; as a single dose Route: IM; Site: left deltoid; rg5 05:17 Follow up: Response: No adverse reaction rg5 05:12 Drug: Banana Bag - (Multivitamin IV 1 amp, NS 0.9% IV 1000 ml, Thiamine IV 100 mg, rg5 foLIC Acid IVPB 1 mg) IV at calculated rate once Route: IV; Rate: calculated rate; Site: left forearm; 05:15 Follow up: IV Status: Completed infusion; IV Intake: 1000ml rg5 05:17 Drug: Ondansetron IVP 4 mg IVP once; over 2 minutes Route: IVP; Site: left forearm; rg5 05:44 Follow up: Response: No adverse reaction rg5 Disposition Summary: 06/28/24 06:56 Discharge Ordered Notes: Location: Home sp4 Problem: new(06/28/24 06:56) sp4 Symptoms: have improved(06/28/24 06:56) sp4 Condition: Stable(06/28/24 06:56) sp4 Diagnosis - Alcohol Abuse, alcohol dependence, alcoholic hepatitis, acute stress reaction, sp4 - Facial contusions, multiple facial abrasions, left periorbital contusion sp4 Followup: sp4 - With: Josh Gómez MD - When: 7 - 10 days - Reason: Recheck today's complaints Discharge Instructions: - Discharge Summary Sheet sp4 - Alcohol Abuse and Dependence Information, Adult sp4 Forms: - Patient Portal Instructions sp4 Signatures: Dispatcher [employer] Carlie Dhillon RN RN ha1 Luis Colón MD MD sp4 Donnie Lazcano RN RN rg5 Corrections: (The following items were deleted from the chart) 04:20 04:20 ACETAMINOPHEN+C.LAB.BRZ ordered. EDMS EDMS 04:20 04:20 BASIC METABOLIC PANEL+C.LAB.BRZ ordered. EDMS EDMS 04:20 04:20 CBC+H.LAB.BRZ ordered. EDMS EDMS 04:20 04:20 ETHANOL+C.LAB.BRZ ordered. EDMS EDMS 04:20 04:20 HEPATIC FUNCTION+C.LAB.BRZ ordered. EDMS EDMS 04:20 04:20 PROTIME (+INR)+COAG.LAB.BRZ ordered. EDMS EDMS 04:20 04:20 PTT, ACTIVATED+COAG.LAB.BRZ ordered. EDMS EDMS 04:20 04:20 SALICYLATE+C.LAB.BRZ ordered. EDMS EDMS 04:20 04:20 URINE DRUG SCREEN+UC.LAB.BRZ ordered. EDMS EDMS 06:06 06:06 ETHANOL+C.LAB.BRZ ordered. EDMS EDMS 06:54 04:47 Attending psychiatrist sp4 sp4 06:54 04:47 Psych Facility sp4 sp4 06:54 04:47 Higher level of care sp4 sp4 06:54 04:47 Stable sp4 sp4 06:54 04:47 new sp4 sp4 06:54 04:47 have improved sp4 sp4 06:54 04:47 Suicidal ideations sp4 sp4 06:54 04:47 Alcohol dependence sp4 sp4 06:54 04:47 Alcohol abuse, acute fall, left facial contusion, left periorbital contusion, sp4 left facial abrasion sp4
[2024-06-28 04:53] LABS: PT Prothrombin Time 11.2 SECONDS (10-13.0); PTT, Activated Partial Thromb 31.7 SECONDS (27.2-37.4); Protime INR 0.98
[2024-06-28 05:04] LABS: ALT/SGPT 88 U/L (16-61); AST/SGOT 41 U/L (15-37); Albumin/Globulin Ratio 1.1 (1.1-1.8); Alkaline Phosphatase 155 U/L (45-117); Anion Gap 18.7 mEq/L (5.0-15.0); BUN Blood Urea Nitrogen 9 mg/dL (7-18); Bicarbonate 17 mEq/L (21-32); Bilirubin Direct < 0.2 mg/dL (0-0.2); Bilirubin Indirect, Calculated 0.3 mg/dL (0.2-0.8); Bilirubin Total 0.5 mg/dL (0.2-1.0); Globulin 3.8 g/dL (2.3-3.5); Glomerular Filtration Rate 104 ml/min (=/>90); Glucose Level 164 mg/dL (74-106); Potassium 3.7 mEq/L (3.5-5.1); Protein, Total 7.8 g/dL (6.4-8.2); Sodium Level 135 mEq/L (136-145)
[2024-06-28] MEDS ORDERED: ONDANSETRON 4 MG/2 ML VIAL ONE (05:08)
--- NOTE | 2024-06-28 06:38 | RAD REPORT ---
CLINICAL HISTORY: Head injury. COMPARISON: None. TECHNIQUE: CT HEAD WITHOUT IV CONTRAST on 06/28/2024 4:20 AM CDT This exam was performed according to our departmental dose-optimization program, which includes autom ated exposure control, adjustment of the mA and/or kV according to patient size and/or use of iterative reconstruction technique. FINDINGS: There is no acute hemorrhage, mass effect or midline shift. Suarez-white differentiation is preserved. There is no hydrocephalus. There is no significant volume loss for age. There is a small left frontal scalp hematoma measuring 2.2 cm with moderate left frontal and periorbital soft tissue swelli ng. The calvarium is intact. Orbits and globes are unremarkable. The paranasal sinuses are clear. Mastoid air cells are clear. IMPRESSION: No acute intracranial findings. Electronically signed by: Merritt Hawley MD 06/28/2024 06:17 AM CDT RP Due to temporary technical issues with the PACS/[employer] reporting system, reports are being tahmina d by the in-house radiologist without review as a courtesy to ensure prompt reporting the interpreting radiologist is fully responsible for the content of the report. Transcribed Date/Time: 06/28/2024 6:38 AM
--- NOTE | 2024-06-28 06:38 | RAD REPORT ---
CLINICAL HISTORY: FACIAL PAIN COMPARISON: None. TECHNIQUE: CT MAXILLOFACIAL WITHOUT IV CONTRAST on 06/28/2024 4:19 AM CDT This exam was performed according to our departmental dose-optimization program, which includes autom ated exposure control, adjustment of the mA and/or kV according to patient size and/or use of iterative reconstruction technique. FINDINGS: There is no acute fracture. The paranasal sinuses are clear. There is extensive left periorbital soft tissue swelling as well as left frontal scalp soft tissue swelling. Mastoid air cells are clear. Temporomandibular joints are intact. There is left frontal scalp hematoma. IMPRESSION: Soft tissue injuries without acute fracture. Electronically signed by: Merritt Hawley MD 06/28/2024 06:18 AM CDT RP Due to temporary technical issues with the PACS/[employer] reporting system, reports are being tahmina d by the in-house radiologist without review as a courtesy to ensure prompt reporting the interpreting radiologist is fully responsible for the content of the report. Transcribed Date/Time: 06/28/2024 6:37 AM
[2024-06-28 06:41] LABS: Anion Gap 17.6 mEq/L (5.0-15.0); Potassium 3.6 mEq/L (3.5-5.1)
[2024-06-28 06:53] LABS: Barbiturates NEGATIVE (NEGATIVE); Benzodiazepines NEGATIVE (NEGATIVE); Cocaine NEGATIVE (NEGATIVE); METHAMPHETAM NEGATIVE (NEGATIVE); Methadone NEGATIVE (NEGATIVE); Opiates NEGATIVE (NEGATIVE); Phencyclidine NEGATIVE (NEGATIVE); THC Cannibis POSITIVE (NEGATIVE)
--- NOTE | 2024-06-28 06:56 | ER ---
Nurse's Notes [facility] Name: Jim Hays Age: 53 yrs Sex: Male : 1970 Arrival Date: 06/28/2024 Time: 04:09 Bed 16 Private MD: Diagnosis: Alcohol Abuse, alcohol dependence, alcoholic hepatitis, acute stress reaction, ;Facial contusions, multiple facial abrasions, left periorbital contusion Presentation: 06/28 04:10 Chief complaint: [facility] DEPUTY REPORTS PATIENT CALLED ha1 THE [employer] REPORTING THAT HE WANTED TO HUNG HIM SELF FROM A TREE. FELL YESTERDAY AND HAS A BUMP AND BRUISING ON HIS FOREHEAD AND LEFT EYE. ALSO, REPORTS DRINKING ALCOHOL. 04:10 Coronavirus screen: Client denies travel out of the [place] in the last 14 days. Ebola ha1 Screen: No symptoms or risks identified at this time. Initial Sepsis Screen: Does the patient meet any 2 criteria? No. Patient's initial sepsis screen is negative. Does the patient have a suspected source of infection? No. Patient's initial sepsis screen is negative. Risk Assessment: Do you want to hurt yourself or someone else? Patient reports no desire to harm self or others. Onset of symptoms was June 28, 2024. 04:10 Method Of Arrival: Ambulatory ha1 04:10 Acuity: IVON 2 ha1 Historical: - Allergies: 04:10 No Known Allergies; ha1 - Home Meds: 04:10 losartan oral [Active]; metformin 500 mg Oral tr24 1 tab twice a day [Active]; ha1 - PMHx: 04:10 Alcoholism; Diabetes - NIDDM; Hyperlipidemia; Hypertension; insomnia; PTSD; ha1 - Immunization history:: Adult Immunizations unknown. - Infectious Disease History:: Denies. - Family history:: not pertinent. - Social history:: Smoking status: unknown. Screenin:09 [facility] ED Fall Risk Assessment (Adult) History of falling in the last 3 months, rg5 including since admission Yes- fall prone (multiple falls) (3 pts) Confusion or Disorientation No (0 pts) Intoxicated or Sedated Yes (3 pts) Impaired Gait Yes (1 pt) Mobility Assist Device Used No (0 pt) Altered Elimination No (0 pt) Score/Fall Risk Level 3 or more points = High Risk Oriented to surroundings, Maintained a safe environment, Provided non-skid footwear, Hourly rounding (assess needs \\T\\ fall precautionary measures) done. Abuse screen: Denies threats or abuse. Nutritional screening: No deficits noted. Tuberculosis screening: No symptoms or risk factors identified. Assessment: 04:09 General: Appears uncomfortable, Behavior is calm, cooperative, appropriate for age, rg5 anxious. Pain: Complains of pain in left eye Pain currently is 7 out of 10 on a pain scale. Quality of pain is described as aching, Pain began 1 day ago. Neuro: Level of Consciousness is awake, alert, obeys commands, Oriented to person, place, time, Reports headache. Cardiovascular: Denies chest pain, Patient's skin is warm and dry. Rhythm is sinus rhythm. Respiratory: Airway is patent Trachea midline Respiratory effort is even, unlabored, Respiratory pattern is regular, symmetrical. GI: Abdomen is round obese. : No signs and/or symptoms were reported regarding the genitourinary system. EENT: Eyes swelling. Derm: Skin is intact, Skin is dry, Skin is normal, Skin temperature is warm. Musculoskeletal: Circulation, motion, and sensation intact. Range of motion: intact in all extremities, Reports pain in left leg. 05:00 Reassessment: No changes from previously documented assessment. Patient and/or family rg5 updated on plan of care and expected duration. Pain level reassessed. General: Appears in no apparent distress. comfortable, sleeping. 06:00 Reassessment: No changes from previously documented assessment. Patient and/or family rg5 updated on plan of care and expected duration. Pain level reassessed. General: Appears in no apparent distress. comfortable, Behavior is calm, cooperative, appropriate for age, sleeping. Respiratory: No deficits noted. Psych: 04:09 [place] Suicide Severity Screening: In the past month, have you wished you were rg5 or wished you could go to sleep and not wake up? Patient responds "yes." "In the past month, have you actually had any thoughts of killing yourself?" Patient responds "yes." "In your lifetime, have you ever done anything, started to do anything, or prepared to do anything to end your life?" Patient responds "no.". 04:09 Subjective: Having thoughts of suicide. Plan for suicide is hang himself on a tree. rg5 Objective:. Interventions: Removed personal items and placed in bag. Patient placed in hospital gown. Searched person for dangerous items. Urine collected and sent for urine drug test. Belonging list filled out. Safety Checks: Personal items have been removed. Door is open. No visitors are present at this time. Patient uses 1 bottle of liquor, daily. Last use was 6 hours ago. Vital Signs: 04:10 BP 158 / 105; Pulse 112; Resp 18 S; Temp 98.6; Pulse Ox 98% ; Weight 136.08 kg; Height ha1 6 ft. 1 in. ; Pain 7/10; 05:30 BP 179 / 82; Pulse 105; Resp 18; Pulse Ox 97% on R/A; Pain 6/10; rg5 06:53 BP 168 / 95; Pulse 108; Resp 18; Pulse Ox 100% ; Pain 3/10; rg5 04:10 Body Mass Index 39.58 (136.08 kg, 185.42 cm) ha1 04:10 Pain Scale: Adult ha1 05:30 Pain Scale: Adult rg5 06:53 Pain Scale: Adult rg5 Drew Coma Score: 04:37 Eye Response: spontaneous(4). Motor Response: obeys commands(6). Verbal Response: sp4 oriented(5). Total: 15. ED Course: 04:09 Patient has correct armband on for positive identification. Bed in low position. Call rg5 light in reach. Side rails up X2. Door closed. Noise minimized. Lights dimmed. Warm blanket given. 04:09 No provider procedures requiring assistance completed. Patient maintains SpO2 rg5 saturation greater than 95% on room air. 04:10 Patient arrived in ED. vk 04:11 Donnie Lazcano, RN is Primary Nurse. rg5 04:19 Luis Colón MD is Attending Physician. sp4 04:52 Triage completed. ha1 05:13 CT Facial Bones W/O Con In Process Unspecified. EDMS 05:13 CT Head Brain wo Cont In Process Unspecified. EDMS 06:54 Josh Gómez MD is Referral Physician. sp4 07:08 IV discontinued, bleeding controlled, No redness/swelling at site. Pressure dressing rg5 applied. 07:09 Provided Education on: post er care done. rg5 Administered Medications: 04:30 Drug: LORazepam PO 1 mg PO once Route: PO; rg5 05:18 Follow up: Response: No adverse reaction rg5 04:30 Drug: Ketorolac IVP 30 mg IVP once Route: IVP; Site: right forearm; rg5 05:18 Follow up: Response: Adverse reaction, Physician notified; Pain is decreased rg5 04:30 Drug: Droperidol IVP 2.5 mg IVP once Route: IVP; Site: left antecubital; rg5 05:18 Follow up: Response: No adverse reaction; Pain is decreased rg5 04:50 Drug: ceFAZolin IVPB 1 grams 50 ml IVPB once over 30 mins Volume: 50 ml; Route: IVPB; rg5 Infused Over: 30 mins; Site: left forearm; 05:18 Follow up: IV Status: Completed infusion; IV Intake: 50ml rg5 04:52 Drug: Boostrix Tdap IM 0.5 ml IM once; as a single dose Route: IM; Site: left deltoid; rg5 05:17 Follow up: Response: No adverse reaction rg5 05:12 Drug: Banana Bag - (Multivitamin IV 1 amp, NS 0.9% IV 1000 ml, Thiamine IV 100 mg, rg5 foLIC Acid IVPB 1 mg) IV at calculated rate once Route: IV; Rate: calculated rate; Site: left forearm; 05:15 Follow up: IV Status: Completed infusion; IV Intake: 1000ml rg5 05:17 Drug: Ondansetron IVP 4 mg IVP once; over 2 minutes Route: IVP; Site: left forearm; rg5 05:44 Follow up: Response: No adverse reaction rg5 Medication: 04:09 VIS not applicable for this client. rg5 Intake: 05:15 IV: 1000ml; Total: 1000ml. rg5 05:18 IV: 50ml; Total: 1050ml. rg5 Outcome: 04:47 ER care complete, transfer ordered by . sp4 06:56 Discharge ordered by . sp4 07:08 Discharged to home ambulatory, rg5 07:08 Condition: stable 07:08 Discharge instructions given to patient, 07:09 Patient left the ED. rg5 Signatures: Dispatcher [employer] EDMS Carlie Das RN RN ha1 Luis Colón MD MD sp4 Wen Aguayo Rommel, RN RN rg5
[2024-06-28 14:35] VITALS: TEMP 98.6
[2024-06-28 14:38] VITALS: BP 168/95; O2SAT 100
--- NOTE | 2024-06-29 11:45 | EKG ---
Test Date: 2024-06-28 Test Time: 04:18:35 Transportation Associate: NAILA MEASUREMENT RESULTS: Intervals: Rate: 110 MS: 172 QRSD: 88 QT: 340 QTc: 460 [place]: P: 52 MS: 172 QRS: 39 T: -1 INTERPRETIVE STATEMENTS: Sinus tachycardia Low voltage QRS Borderline ECG Compared to ECG 12/27/2023 08:46:28 No significant changes Electronically Signed On 06-29-24 11:41:59 CDT by Temo Donnelly
== END 2024-06-28 07:09 | disposition home or self-care (01) ==
LOC: ER 04:09
DX: F43.0 Acute stress reaction (principal); F10.20 Alcohol dependence, uncomplicated; K70.10 Alcoholic hepatitis without ascites; S00.81XA Abrasion of other part of head, initial encounter; W17.89XA Other fall from one level to another, initial encounter; E11.9 Type 2 diabetes mellitus without complications; I10 Essential (primary) hypertension; Z23 Encounter for immunization
CPT/HCPCS: 93005; 85025; 80048 ×2; 36415; 85610; 80076; 85730; 80307; 70450; 70486; 76377; 90715; 96372; 99285; 80143; 80179; 82077 ×2; J3411; J2405; J1790; J7030; J0690